=== PATIENT | female | born 2000 | race African-American/Black ===

== ENCOUNTER 2025-01-22 09:45 | Observation (INO) | payer MEDICAID, SELFPAY ==
--- NOTE | 2025-01-22 10:13 | PC.NURSE ---
Dr. Shelton notified of pt. arrival for nausea/vomiting. Orders received for 1L LR bolus and one time dose of 4 mg IV zofran. Will re-evaluate after fluids and antiemetic if pt. needs further IVF or medication.
--- NOTE | 2025-01-22 10:20 | OBADM ---
This patient, Zulema Mckinney, admitted to the OB room 115 for observation. Patient/family oriented to hospital policies and general routines including ID bracelet, bed and alarms, visiting hours, pain management, procedures, bathroom and other care routines, personal items, smoking policy, room service/diet, and visiting hours. Patient/Family are encouraged to report perceived risks to care and to ask questions if they do not understand what they are told or what they should do.
[2025-01-22] MEDS: LACTATED RINGERS 1,000 ML 999 ML IV CONT ×2 (10:49→13:46)
[2025-01-22 10:55] VITALS: BMI 17.2
[2025-01-22] MEDS: ONDANSETRON INJ 4 MG/2 ML VIAL IV PUSH (11:05)
--- OUTSIDE RECORDS SUMMARY | 2025-01-22 11:16 | XMS_ITS | Clinical Summary ---
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 Role Phone Unavailable Primary Care Provider Unavailabl e Allergies No known active allergies Medications No known medications Active Problems No known active problems Family History Medical History Relation Name Comments No Known Problems Brother No Known Problems Father Cancer Maternal Grandfather No Known Problems Maternal Grandmother No Known Problems Mother Unknown Paternal Grandfather Unknown Paternal Grandmother No Known Problems Sister Relation Name Status Comments Brother Alive Father Alive Maternal Grandfather Alive Maternal Grandmother Alive Mother Alive Paternal Grandfather Paternal Grandmother Sister Alive Social History Tobacco Use Types Packs/Day Years Used Date Smoking Tobacco: Never Smokeless Tobacco: Never Alcohol Use Standard Drinks/Week Comments Never 0 (1 standard drink = 0.6 oz pur e alcohol) Comments No Sex and Gender Information Value Date Recorded Sex Assigned at Not on file Legal Sex Female 2:35 PM CDT Gender Identity Not on file Sexual Orientation Not on file Last Filed Vital Signs Vital Sign Reading Time Taken Comments Blood Pressure 100/62 05/26/2020 3:23 PM CDT Pulse 91 05/26/2020 3:23 PM CDT Temperature 36.9 C (98.5 F) 05/26/2020 3:23 PM CDT Respiratory Rate 16 05/26/2020 3:23 PM CDT Oxygen Saturation 98% 05/26/2020 3:23 PM CDT Inhaled Oxygen Concentration - - Weight 59 kg (130 lb) 05/26/2020 3:23 PM CDT Height 165.1 cm (5' 5 ) 05/26/2020 3:23 PM CDT Body Mass Index 21.63 05/26/2020 3:23 PM CDT Plan of Treatment Health Maintenance Due Date Last Done Comments HPV VACCINES (1 - 3-dose series) 2013 DTAP/TDAP/TD VACCINES (1 - Tdap) 2017 HEPATITIS B VACCINES (1 of 3 - 19+ 3-dose series) 10/2017 CERVICAL CANCER SCREENING 12/02/2019 HPV/Cotest (21-29) 12/02/2019 PAP SMEAR 12/02/2019 INFLUENZA VACCINE (#1) 2024
--- OUTSIDE RECORDS SUMMARY | 2025-01-22 11:16 | XMS_ITS | Clinical Summary ---
Author Organization 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 Gender Identity Not on file Sexual Orientation Not on file Plan of Treatment Health Maintenance Due Date Last Done Comments Hepatitis C Virus (HCV) Screening 1998 Pap Smear 12/02/2019 Influenza Immunization (#1) 2024 09/20/2012 SARS-COV-2 Immunization ( season) 2024 Respiratory Syncytial Virus (RSV) Immunization (Adult) (1 - 1-dose 75+ series) 2073 Hepatitis B Immunization Completed 999, 02/19/1999, 1998 DTaP/Tdap/Td Immunization Discontinued 2011, 04/11/2003, 03/31/2000, Additional history exists TdaP Immunization Completed 09/20/2012 Human Papillomavirus (HPV) Immunization Completed 06/03/2015, 06/05/2013, 09/20/2012 Meningococcal Immunization (ACWY) Completed 06/03/2015, 09/20/2012 Pneumococcal Immunization Combined Aged Out No longer eligible based on patient's age to complete this topic Rotavirus Immunization Aged Out No lo nger eligible based on patient's age to complete this topic
--- OUTSIDE RECORDS SUMMARY | 2025-01-22 11:16 | XMS_ITS | Clinical Summary ---
Author Organization [facility] Address [address] [place] [address] Care Team Providers Care Dictaphone Mechanic Name Role Phone No, Physician Primary Care Provider [phone] Allergies No known active allergies Medications ferrous sulfate 325 mg (65 mg of elemental iron) tabletIndications: Iron Deficiency Anemia Take 325mg ferrous sulfate every other day. Take with 250mg ascorbic acid tablet of half a glass of orange juice to enhance absorption. Take two hours before, or four hours after, ingestion of antacids/heartb urn. Take separately from calcium-contain ing foods and beverages (milk), calcium supplements, cereals, dietary fiber, tea, coffee, and eggs. 45 tablet 3 08/11/20 23 Active ascorbic acid (VITAMIN C) 250 mg tablet Take 1 tablet (250 mg total) by mouth every other day With iron 45 tablet 3 08/11/20 23 Active triamcinolone (KENALOG) 0.1 % ointmentIndication s:Eczema, unspecified type Apply topically 2 (two) times a day For up to two weeks as needed. Repeat as needed. Schedule a follow up appointment if symptoms not improving or worsen. 15 g 09/27/20 23 Active doxylamine-pyridox ine, vit B6, (DICLEGIS) 10-10 mg tablet Take 1 tablet by mouth nightly as needed for nausea 20 tablet 01/18/20 25 Active ondansetron ODT (ZOFRAN-ODT) 4 mg disintegrating tablet Take 1 tablet (4 mg total) by mouth every 8 (eight) hours as needed for nausea or vomiting 20 tablet 01/18/20 25 Active Active Problems Problem Noted Date Diagnosed Date Annual physical exam 02/09/2022 Assessment & Plan (05/10/2023 3:30 PM CDT): Reviewed PMH & FH phq reviewed Reviewed medications and supplements HCM: orders placed as needed Irregular menses 02/09/2022 Screening for malignant neoplasm of cervix 02/09 Comments Yes Encounters Date Type Department Care Team Description 01/17/2025 9:09 AM CDT - 01/17/2025 10:[address] [facility] Emergency Department [address] [place] [address] [id number] Nausea/vomiting in (Primary Dx) Discharge Disposition: Discharge to home or self care from Last 3 Months Immunizations Immunization Administration Dates Next Due DTaP 04/11/2003, 0,06/25/1999,05/06,02/19/1999 HPV, Quadrivalent 06/05/2013,09/20/2012 HPV9 06/03/2015 Hep A, Ped Unspecified 01/31/2001 Hep A, Pediatric 04/04/2007 Hep B / HiB 06/25/1999 Hep B, Adolescent or Pediatric 02/19/1999,1998 HiB 03/31/2000,05/06/1999,02/19/1999 IPV 04/11/2003, 0,05/06/1999,02/19 Influenza, Quadrivalent, Spl it, Preservative Free, Intramuscular 07/05/2023 Influenza, Trivalent, Preser vative Free, Intramuscular 09/20/2012 Influenza, Unspecified 07/12/2022 MMR 04/11/2003,12/18/1999 Meningococcal MCV4P (Menactra) 06/03/2015,2011 PPD TEST 08/08/2023 Tdap 09/20/2012 Varicella 04/04/2007,12/18/1999 Family History Medical History Relation Name Comments No Known Problems Father No Known Problems Mother Breast cancer Neg Hx Ovarian cancer Neg Hx Relation Name Status Comments Father Alive Mother Alive Social History Tobacco Use Types Packs/Day Years Used Date Smoking Tobacco: Never Smokeless Tobacco: Never Tobacco Cessation:Counseling Given: Not Answered Alcohol Use Standard Drinks/Week Comments Yes 0 (1 standard drink = 0.6 oz pur e alcohol) socially AUDIT-C Answer Date Recorded Q1: How often do you have a drink containing alc ohol? 2-4 times a month 05/10/2023 Average Number of Drinks Not on file 023 Frequency of Binge Drinking Not on file 05/2023 PHQ-2 Answer Date Recorded PHQ-2 Total Score (If total score is 3 or more points, staff should administer the PHQ-9) 0 05/10/2023 Personal Safety Answer Date Recorded Have you ever been in or are you currently in a harmful physical or emotional relationship or is someone making you feel afraid or unsafe? Denies 01/17/2025 Comments Yes Sex and Gender Information Value Date Recorded Sex Assigned at Not on file Legal Sex Female 2:55 PM IT RISK ADVISOR Gender Identity Not on file Sexual Orientation Not on file Obstetrics History Para Term AB IAB SAB Ectopic Multiple Livin g Live Births 1 0 0 0 0 0 0 0 0 0 0 Date Outcome GA Total Labor Labor/2nd/3rd Weight Sex Type Anes PTL Katina A1 A5 Name Clin Current Last Filed Vital Signs Vital Sign Reading Time Taken Comments Blood Pressure 126/74 01/17/2025 10:30 AM CDT Pulse 84 01/17/2025 10:30 AM CDT Temperature 36.9 C (98.5 F) 01/17/2025 8:16 AM CDT Respiratory Rate 18 01/17/2025 10:3 0 AM CDT Oxygen Saturation 100% 01/17/2025 10: 30 AM CDT Inhaled Oxygen Concentration - - Weight 47.5 kg (104 lb 11.5 oz) 01/17/2025 8:16 AM CDT Height 165.1 cm (5' 5 ) 05/10/2023 3:11 PM CDT Body Mass Index 17.43 05/10/2023 3:11 PM CDT Plan of Treatment Health Maintenance Due Date Last Done Comments DTaP/Tdap/Td Vaccine (7 - Td or Tdap) 09/20/2022 09/20/2012, 04/11/2003, 03/31/2000, Additional history exists Cervical Cancer Screening 02/09/2023 02/09/2022 Depression Screening 05/10/2024 05/10/2023 Regular Well Visit/Exam 18-64 05/10/2024 05/10/2023, 02/09/2022 Covid-19 Vaccine ( season) 2024 07/01/2021, 06/07/2021 Influenza Vaccine (Season Ended) 2025 07/05/2023, 07/12/2022, 09/20/2012 Hepatitis B Screening Completed 06/25/1999 , 02/19/1999, 1998 Varicella Vaccines Completed 04/04/2007, 12/18/1999 HPV Vaccines Completed 06/03/2015, 12/2012, 09/20/2012 Hepatitis C Screening Completed 07/05/2023 Pneumococcal vaccine <65 Aged Out No longer eligible based on patient's age to complete this topic Procedures Procedure Name Priority Date/Time Associated Diagnosis Comments EGFR STAT 01/17/2025 8:24 AM CDT URINALYSIS, MICROSCOPIC ONLY STAT 01/17/2025 8:24 AM CDT DIFFERENTIAL AUTO STAT 01/17/2025 8:2 4 AM CDT HCG, BLOOD, QUANTITATIVE STAT 01/17/2025 8:24 AM CDT LIPASE STAT 01/17/2025 8:24 AM CDT COMPREHENSIVE METABOLIC PANEL STAT 01/17/2025 8:24 AM CDT CBC WITH AUTO DIFFERENTIAL STAT 01/17/2025 8:24 AM CDT URINALYSIS AND REFLEX TO MICROSCOPIC AND CULTURE STAT 01/17/2025 8:24 AM CDT HEPATITIS PANEL, ACUTE Routine 3:37 PM CDT Routine screening for STI (sexually transmitted infection) PAP WITH REFLEX TO HIGH RISK HPV Routine 02/09/2022 11:05 AM CDT Annual physical exam Screening for malignant neoplasm of cervix from Last 3 Months or Most Recently Relevant to Health Maintenance Results * eGFR (01/17/2025 8:24 AM CDT) eGFR >90 >=60 mL/min/1. 73 m2 Comment: Interpretive Data Reference Interval Normal >/= 90 mL/min/1.73m2 Mildly decreased* 60 - 89 mL/min/1.73m2 Mildly to moderately decreased 45 - 59 mL/min/1.73m2 Moderately to severely decreased 30 - 44 mL/min/1.73m2 Severely decreased 15 - 29 mL/min/1.73m2 Kidney Failure < 15 mL/min/1.73m2 *Relative to young adult level Estimated glomerular filtration rate is determined by the 2020 CKD-EPI equation recommended by the National Kidney Foundation (A Unifying Approach to GFR Estimation: Recommendations of the NKF-ASK Task Force on Reassessing the Inclusion of Race in Diagnosing Kidney Disease, JASN 2020). The CKD-EPI equation should not be used for patients with unstable renal function and has not been validated in children and those over 70. Current interpretive data was last reviewed 2021. Testing performed by: [address] [address] Blood 01/17/2025 8:24 AM CDT 01/17/2025 8:34 AM CDT us Sterling Henry MD LAB BLOOD ORDERABLES Final Resul t [facility] [address] [facility] Department [place] [address] * Differential, auto (01/17/2025 8:24 AM CDT) Pathologist [facility] Emergency Department Neutrophil abs 3.41 1.50 - 6.50 K/cumm Comment:Testing performed by : [address] [address] Imm gran abs 0.01 0.00 - 0.10 K/cumm [facility] CALVIN Comment:Testing performed by : [address] [address] Lymphocyte abs 1.65 0.80 - 3.30 K/cumm DARWIN Comment:Testing performed by : [address], [place]., [address] Monocyte abs 0.65 0.20 - 0.80 K/cumm [facility] Comment:Testing performed by : [address], [place]., [address] Eosinophil abs 0.04 0.00 - 0.50 K/cumm [facility] Comment:Testing performed by : [address], [place]., [address] Basophil abs 0.09 0.00 - 0.10 K/cumm [facility] Comment:Testing performed by : [address] [address] Neutrophil pct 58.3 % [facility] Comment: Interpretive Data Percent cell count reference ranges are not reported, since discordance with absolute values may lead to misinterpretation of CBC data. Current Interpretive Data was last revised on 2018. Testing performed by: [address] [address] Imm gran pct 0.2 % [facility] Comment: Interpretive Data Percent cell count reference ranges are not reported, since discordance with absolute values may lead to misinterpretation of CBC data. Current Interpretive Data was last revised on 2018. Testing performed by: [address] [address] Lymphocyte pct 28.2 % [facility] Comment: Interpretive Data Percent cell count reference ranges are not reported, since discordance with absolute values may lead to misinterpretation of CBC data. Current Interpretive Data was last revised on 2018. Testing performed by: [address] [address] Monocyte pct 11.1 % [facility] Comment: Interpretive Data Percent cell count reference ranges are not reported, since discordance with absolute values may lead to misinterpretation of CBC data. Current Interpretive Data was last revised on 2018. Testing performed by: [address] [address] Eosinophil pct 0.7 % [facility] Comment: Interpretive Data Percent cell count reference ranges are not reported, since discordance with absolute values may lead to misinterpretation of CBC data. Current Interpretive Data was last revised on 2018. Testing performed by: [address] [address] Basophil pct 1.5 % D[facility]WIN CALVIN Comment: Interpretive Data Percent cell count reference ranges are not reported, since discordance with absolute values may lead to misinterpretation of CBC data. Current Interpretive Data was last revised on 2018. Testing performed by: [address] [address] Blood 01/17/2025 8:24 AM CDT 01/17/2025 8:34 AM CDT us Sterling Henry MD LAB BLOOD ORDERABLES Final Resul t [facility] [address] [facility] Department [place] [address] * (ABNORMAL) Urinalysis reflex to microscopic and culture Urine (01/17/2025 8:24 AM CDT) Color, ur Yellow Yellow Comment:Testing performed by : [address] [address] Clarity, ur Cloudy(A) Clear DARWIN Comment:Testing performed by : [address] [address] Specific gravity, ur 1.029 1.003 - 1.030 DARWIN Comment:Testing performed by : [address] [address] pH, urine 6.5 DARWIN Comment: Interpretive Data U rine pH is affected by diet, medications, systemic acid-base disturbances, and renal tubular function. pH may affect urinary stone formation. For example, urine pH below 6.0 may help reduce the tendency for calcium phosphate stones and pH greater than 6.0 may reduce the tendency for uric acid stone formation. Source: [employer]How[employer] Current Interpretive Data was last revised on 2017 Testing performed by: [address] [address] Protein, ur ql 1+(A) Negative DARWIN CALVIN Comment:Testing performed by : [address], [place]., [address] Glucose, ur ql Negative Negative DARWIN Comment:Testing performed by : [address], [place]., [address] Ketones, ur 3+(A) Negative DARWIN CALVIN Comment:Testing performed by : [address], [place]., [address] Bilirubin, ur Negative Negative DARWIN CALVIN Comment:Testing performed by : [address], [place]., [address] Blood, ur Negative Negative DARWIN Comment:Testing performed by : [address], [place]., [address] Urobilinogen, ur 2.0(A) <2.0 mg/dL [facility]WIN CALVIN Comment:Testing performed by : [address], [place]., [address] Nitrite, ur Negative Negative DARWIN Comment:Testing performed by : [address], [place]., [address] Leukocyte esterase, ur Negative Negative [facility]ARWIN Comment:Testing performed by : [address], [place]., [address] UA reflex comment Reflex to microscopic UA will be performed. DARWIN Comment:Testing performed by : [address], [place]., [address] Urine 01/17/2025 8:24 AM CDT 01/17/2025 8:34 AM CDT us Sterling Henry MD LAB MICROBIOLOGY - GENERAL ORDER HIRAL Final Result [facility] [address] [facility] Department [place] [address] * (ABNORMAL) CBC with auto differential (01/17/2025 8:24 AM CDT) WBC 5.85 3.80 - 9.90 K/cumm Comment:Testing performed by : [address], [place]., [address] Hgb 12.4 11.9 - 15.5 g/dL [facility]WIN CALVIN Comment:Testing performed by : [address] [address] Hct 36.4 35.6 - 45.5 % [facility]WIN Comment:Testing performed by : [address] [address] Plt 348 150 - 400 K/cumm DARWIN Comment:Testing performed by : [address] [address] MPV 9.8 9.1 - 12.3 fL DARWIN Comment:Testing performed by : [address] [address] RBC 3.97 3.90 - 5.20 M/cumm DARWIN Comment:Testing performed by : [address] [address] MCV 91.7 81.3 - 96.4 fL [facility]ARWIN Comment:Testing performed by : [address] [address] MCH 31.2 27.1 - 33.3 pg [facility]ARWIN Comment:Testing performed by : [address] [address] MCHC 34.1 32.3 - 35.7 g/dL [facility]WIN Comment:Testing performed by : [address] [address] RDW CV 14.6 11.1 - 14.9 % [facility]ARWIN Comment:Testing performed by : [address] [address] RDW SD 49.4(H) 35.7 - 48.1 fL [facility]ARWIN Comment:Testing performed by : [address] [address] NRBC abs 0.00 0.00 - 0.01 K/cumm DARWIN Comment:Testing performed by : [address] [address] Blood Venous blood specimen / Unknown 01/17/2025 8:24 AM CDT 01/17/2025 8:34 AM CDT us Sterling Henry MD LAB BLOOD ORDERABLES Final Resul t Performing Organization Address [facility] de Phone Number [facility] [place] [address] * (ABNORMAL) Urinalysis, microscopic only (01/17/2025 8:24 AM CDT) WBC, ur 0-5 0 - 5 /HPF Comment:Testing performed by : [address] [address] RBC, ur 3-5(A) 0 - 2 /HPF DARWIN Comment:Testing performed by : [address] [address] Epithelial cells, squamous, ur >50(A) 0 - 5 /HPF DARWIN Comment:Testing performed by : [address] [address] Mucous, ur Present(A) [facility]ARWIN Comment:Testing performed by : [address] [address] Culture Reflex Comment Reflex conditions for urine culture (WBC >10) not met. DARWIN Comment:Testing performed by : [address] [address] Urine 01/17/2025 8:24 AM CDT 01/17/2025 8:34 AM CDT Sterling Henry MD LAB URINE ORDERABLES Final Resul t Performing Organization Address [facility] Co de Phone Number [facility] [place] [address] * (ABNORMAL) hCG, blood, quantitative (01/17/2025 8:24 AM CDT) hCG, quant 59,449.0( H) 0.0 - 5.0 IUnits/L Comment: Interpretive Data Male: < 5 IU/L Non- premenopausal Female: <5 IU/L The Wenceslao hCG Beta Quant assay procedure was used. Results from different manufacturers or methods may not be comparable. Serial testing should be performed using the same method. Interpretive Data was last revised on 2023 Testing performed by: [address] [address] Blood 01/17/2025 8:24 AM CDT 01/17/2025 8:34 AM CDT Sterling Henry MD LAB BLOOD ORDERABLES Final Resul t Performing Organization Address [facility] Co de Phone Number [address] [place] [address] * Lipase (01/17/2025 8:24 AM CDT) Lipase 15 10 - 99 Units/L Comment:Testing performed by : [address] [address] Blood Venous blood specimen / Unknown 01/17/2025 8:24 AM CDT 01/17/2025 8:34 AM CDT us Sterling Henry MD LAB BLOOD ORDERABLES Final Resul t Performing Organization Address [facility] de Phone Number [address] [address] * (ABNORMAL) Comprehensive metabolic panel (01/17/2025 8:24 AM CDT) Sodium 136 135 - 145 mmol/L Comment:Testing performed by : [address] [address] Potassium, pl 3.5 3.3 - 4.9 mmol/L DARWIN Comment:Testing performed by : [address] [address] Chloride 100 97 - 110 mmol/L [facility]WIN Comment:Testing performed by : [address] [address] CO2 24 22 - 32 mmol/L [facility]WIN Comment:Testing performed by : [address] [address] Anion gap 12 2 - 15 mmol/L [facility]WIN Comment:Testing performed by : [address] [address] BUN 10 6 - 25 mg/dL DARWIN Comment:Testing performed by : [address] [address] Creatinine 0.62 0.60 - 1.10 mg/dL [facility]WIN Comment:Testing performed by : [address] [address] Glucose 83 70 - 199 mg/dL DARWIN Comment: Interpretive Data Fasting glucose >/= 126 mg/dl is diagnostic for diabetes. Fasting is defined as no caloric intake for at least 8 hours. Fasting glucose between 100 mg/dl to 125 mg/dl is diagnostic of prediabetes. In a patient with classic symptoms of hyperglycemia or hyperglycemic crisis, a random glucose >/= 200 mg/dl is diagnostic for diabetes. In the absence of unequivocal hyperglycemia, results should be confirmed by repeat testing. The classification and Diagnosis of Diabetes Diabetes Care 2021; 46: S19-S40. Current interpretive data was last revised 2022. Testing performed by: [address] [address] Calcium 10.3 8.5 - 10.3 mg/dL [facility] Comment:Testing performed by : [address] [address] Bilirubin, total 1.3(H) 0.1 - 1.2 mg/dL [facility]WIN Comment:Testing performed by : [address] [address] Protein, pl 7.8 6.5 - 8.5 g/dL [facility] Comment:Testing performed by : [address] [address] Albumin 4.7 3.5 - 5.0 g/dL [facility] Comment:Testing performed by : [address] [address] Alk phos 46 40 - 130 Units/L DARWIN Comment:Testing performed by : [address] [address] ALT 12 7 - 45 Units/L DARWIN Comment:Testing performed by : [address] [address] AST 19 10 - 45 Units/L DARWIN Comment:Testing performed by : [facility], [address] [place] [address]., [address] Blood 01/17/2025 8:24 AM CDT 01/17/2025 8:34 AM CDT Sterling Henry MD LAB BLOOD ORDERABLES Final Resul t Performing Organization Address City/[facility]/ZIP Co de Phone Number [facility] [address] [facility] [place] [address] * Hepatitis panel, acute Blood (07/05/2023 3:37 PM CDT) Hep A IgM Nonreactive Nonreactive Comment: Interpretive Data: If Hep A IgM Ab is reported as Equivocal, a new sample should be drawn in two weeks for testing. Current interpretive data was last revised on 19. Hep B core IgM Nonreactive Nonreactive DARWIN Comment: Interpretive Data If HepB Core IgM Ab is reported as Equivocal, a new sample should be drawn in two weeks for testing. Current interpretive data was last revised on 19. Hep C Ab Nonreactive Nonreactive [facility] Comment: Interpretive Data Nonreactive: Antibodies to HCV not detected. Does NOT exclude the possibility of recent exposure to HCV. Equivocal: Equivocal for HCV antibodies. Supplemental molecular testing will be automatically performed to determine infection status in accordance with current CDC screening recommendations. Reactive: Positive for HCV antibodies. This may represent current or past HCV infection. Supplemental molecular testing will be automatically performed to determine current infection status in accordance with current CDC screening recommendations. Interpretive data was last revised on 2019. HepBsAg Nonreactive Nonreactive [facility] Blood 07/05/2023 3:37 PM CDT 07/05/2023 6:33 PM CDT Pinky Rossi MD LAB MICROBIOLOGY - GENERAL ORDERABLES Final Result [facility] [address] [facility] [place] [address] * Pap with reflex to High Risk HPV (02/09/2022 11:05 AM CDT) Thin prep (Pap test) 02/09/2022 11:05 AM CDT 02/10/2022 11:05 AM CDT Narrative PATHOLOGY [facility] - 02/12/2022 11:00 AM CDT [facility] Department of Pathology [address] [place] [address] Final Report Note to Patients: This report may contain a detailed description of human tissue sent by a health care provider to the laboratory for pathologic evaluation. The content of this report is essential for diagnosis and may provide important critical findings. This information may be unfamiliar to patients to review without a medical professional present. It is advised that the patient review this report in the presence of a health care provider who can answer questions and explain the details. Patient Name: ELDA MCKINNEY Address: [address] [place] [address] Gender: F : 2000 (Age: 21) Service: Laboratory Location: [facility] #: [id number] Patient Type: [facility] SPECIMEN Taken: 02/09/2022 Received: 02/10/2022 Accessioned:: 02/11/2022 Reported: 02/12/2022 Physician(s): Robyn Laws PA-C [facility] Diagnosis: Source of Specimen: Imaged Thinprep Pap Test w/ Reflex HPV - Injection Molding Engineer Cytologic Material Specimen Adequacy: - Satisfactory for evaluation; endocervical/transformation zone component present General Category: - Negative for intraepithelial lesion or malignancy DALIA Momin(ASCP) Report Electronically Reviewed and Signed Out By DALIA Momin(ASCP) 02/12/2022 11:00:56 Specimen(s) Received: A: Imaged Thinprep Pap Test w/ Reflex HPV - Injection Molding Engineer Cytologic Material Clinical History: Last Menstrual Period: 01/28/2022 The Pap test is a screening test used to aid in the detection of cervical cancer and its precursors. It should not be the sole means by which malignant and premalignant lesions are diagnosed. Both false negative and false positive results may occur. It also has poor sensitivity for the detection of endometrial lesions and should not be used to evaluate suspected endometrial abnormalities. For these reasons it is most important to obtain Pap tests at regular intervals. The performance characteristics of some immunohistochemical stains, fluorescence in-situ hybridization tests and immunophenotyping by flow cytometry cited in this report (if any) were determined by the Surgical Pathology Department at [facility] as part of an ongoing it quality assurance analyst program and in compliance with federally mandated regulations drawn from the Clinical Laboratory Improvement Act of 1988 (CLIA '88). Some of these tests rely on the use of analyte specific reagents and are subject to specific labeling requirements by the US Food and Drug Administration. Such diagnostic tests may only be performed in a facility that is certified by the Department of Health and Human Services as a high complexity laboratory under CLIA '88. The FDA has determined that such clearance or approval is not necessary. This test is used for clinical purposes. It should not be regarded as investigational or for research. Nevertheless, federal rules concerning the medical use of analyte specific reagents require that the following disclaimer be attached to the report: This test was developed and its performance characteristics determined by the Surgical Pathology Department [facility]. It has not been cleared or approved by the U. S. Food and Drug Administration. Robyn AN LAB CYTOLOGY ORDERABLES [facility] Result PATHOLOGY [facility] from Last 3 Months or Most Recently Relevant to Health Maintenance Insurance [facility] Care Teams Dictaphone Mechanic Relationship Specialty Start Date End Date No, Physician PCP - General 01/17/25
--- OUTSIDE RECORDS SUMMARY | 2025-01-22 11:16 | XMS_ITS | Referral Summary ---
Author Organization [facility] ospital Address [address] [place] [address] Care Team Providers Care Operational Review Sergeant Name Role Phone No, Physician Primary Care Provider [phone] Encounters Date Type Department Care Team Description 01/17/2025 9:09 AM CDT - 01/17/2025 10:36 AM CDT Emergency [facility] Emergency Department [address] [place] [address] Nausea/vomiting in (Primary Dx) Discharge Disposition: Discharge to home or self care from Last 3 Months Allergies No known active allergies Medications ferrous [...] malignant neoplasm of cervix 02/09 Comments Yes Immunizations Immunization Administration Dates Next Due DTaP [...] PPD TEST 08/08/2023 Tdap 09/20/2012 Varicella 04/04/2007,12/18/1999 Social History Tobacco Use Types Packs/Day Years [...] on file Legal Sex Female 2:55 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 Testing performed by: [facility], [address] [place] [address], [place]., [address] Blood 01/17/2025 8:24 AM CDT 01/17/2025 8:34 AM CDT us Sterling Henry MD LAB BLOOD ORDERABLES Final Resul t DARWIN [address] [facility] Department [place] [address] * Differential, auto (01/17/2025 8:24 AM CDT) Neutrophil abs 3.41 1.50 - 6.50 K/cumm Comment:Testing performed by : [address] [address] Imm gran abs 0.01 0.00 - 0.10 K/cumm DARWIN Comment:Testing performed by : [address] [address] Lymphocyte abs 1.65 0.80 - 3.30 K/cumm DARWIN Comment:Testing performed by : [address] [address] Monocyte abs 0.65 0.20 - 0.80 K/cumm [facility] Comment:Testing performed by : [address] [address] Eosinophil abs 0.04 0.00 - 0.50 K/cumm [facility] Comment:Testing performed by : [address] [address] Basophil abs 0.09 0.00 - 0.10 K/cumm [facility] Comment:Testing performed by : [address] [address] Neutrophil pct 58.3 % [facility] Comment: Interpretive Data Percent cell count reference ranges are not reported, since discordance with absolute values may lead to misinterpretation of CBC data. Current Interpretive Data was last revised on 2018. Testing performed by: [address] [address] Imm gran pct 0.2 % DARWIN Comment: Interpretive Data Percent cell count reference ranges are not reported, since discordance with absolute values may lead to misinterpretation of CBC data. Current Interpretive Data was last revised on 2018. Testing performed by: [address] [address] Lymphocyte pct 28.2 % [facility] Comment: Interpretive Data Percent cell count reference ranges are not reported, since discordance with absolute values may lead to misinterpretation of CBC data. Current Interpretive Data was last revised on 2018. Testing performed by: [address] [address] Monocyte pct 11.1 % DARWIN Comment: Interpretive Data Percent cell count reference ranges are not reported, since discordance with absolute values may lead to misinterpretation of CBC data. Current Interpretive Data was last revised on 2018. Testing performed by: [address] [address] Eosinophil pct 0.7 % DARWIN Comment: Interpretive Data Percent cell count reference ranges are not reported, since discordance with absolute values may lead to misinterpretation of CBC data. Current Interpretive Data was last revised on 2018. Testing performed by: [address] [address] Basophil pct 1.5 % DARWIN Comment: Interpretive Data Percent cell count reference ranges are not reported, since discordance with absolute values may lead to misinterpretation of CBC data. Current Interpretive Data was last revised on 2018. Testing performed by: [address] [address] Blood 01/17/2025 8:24 AM CDT 01/17/2025 8:34 AM CDT us Sterling Henry MD LAB BLOOD ORDERABLES Final Resul t [facility] [address] [facility] Department of Laboratories [place], [place] [id number] * (ABNORMAL) Urinalysis reflex to microscopic and culture Urine (01/17/2025 8:24 AM CDT) Color, ur Yellow Yellow Comment:Testing performed by : [address] [address] Clarity, ur Cloudy(A) Clear DARWIN Comment:Testing performed by : [address] [address] Specific gravity, ur 1.029 1.003 - 1.030 D[facility]WIN Comment:Testing performed by : [facility], [address] [place] [address], [place]., [address] pH, urine 6.5 DARWIN Comment: Interpretive Data U rine pH is affected by diet, medications, systemic acid-base disturbances, and renal tubular function. pH may affect urinary stone formation. For example, urine pH below 6.0 may help reduce the tendency for calcium phosphate stones and pH greater than 6.0 may reduce the tendency for uric acid stone formation. Source: [facility] Current Interpretive Data was last revised on 2017 Testing performed by: [facility], [address] [place] [address], [place]., [address] Protein, ur ql 1+(A) Negative DARWIN Comment:Testing performed by : [address], [place]., [address] Glucose, ur ql Negative Negative DARWIN Comment:Testing performed by : [address], [place]., [address] Ketones, ur 3+(A) Negative DARWIN Comment:Testing performed by : [facility], [address] [place] [address], [place]., [address] Bilirubin, ur Negative Negative DARWIN Comment:Testing performed by : [address], [place]., [address] Blood, ur Negative Negative D[facility]WIN Comment:Testing performed by : [address], [place]., [address] Urobilinogen, ur 2.0(A) <2.0 mg/dL [facility]WIN Comment:Testing performed by : [address] [address] Nitrite, ur Negative Negative [facility]WIN Comment:Testing performed by : [address], [place]., [address] Leukocyte esterase, ur Negative Negative D[facility]WIN Comment:Testing performed by : [address] [address] UA reflex comment Reflex to microscopic UA will be performed. DARWIN Comment:Testing performed by : [address], [place]., [address] Urine 01/17/2025 8:24 AM CDT 01/17/2025 8:34 AM CDT us Sterling Henry MD LAB MICROBIOLOGY - GENERAL ORDER HIRAL Final Result D[facility] [address] [facility] Department [place] [address] * (ABNORMAL) CBC with auto differential (01/17/2025 8:24 AM CDT) WBC 5.85 3.80 - 9.90 K/cumm Comment:Testing performed by : [address] [address] Hgb 12.4 11.9 - 15.5 g/dL D[facility]WIN Comment:Testing performed by : [address] [address] Hct 36.4 35.6 - 45.5 % [facility]WIN Comment:Testing performed by : [address] [address] Plt 348 150 - 400 K/cumm DARWIN Comment:Testing performed by : [address] [address] MPV 9.8 9.1 - 12.3 fL [facility]WIN Comment:Testing performed by : [address] [address] RBC 3.97 3.90 - 5.20 M/cumm D[facility]WIN Comment:Testing performed by : [address] [address] MCV 91.7 81.3 - 96.4 fL [facility] Comment:Testing performed by : [address] [address] MCH 31.2 27.1 - 33.3 pg [facility]WIN Comment:Testing performed by : [address] [address] MCHC 34.1 32.3 - 35.7 g/dL [facility]WIN Comment:Testing performed by : [address] [address] RDW CV 14.6 11.1 - 14.9 % DARWIN Comment:Testing performed by : [address] [address] RDW SD 49.4(H) 35.7 - 48.1 fL [facility]WIN Comment:Testing performed by : [address] [address] NRBC abs 0.00 0.00 - 0.01 K/cumm DARWIN Comment:Testing performed by : [address] [address] Blood Venous blood specimen / Unknown 01/17/2025 8:24 AM CDT 01/17/2025 8:34 AM CDT us Sterling Henry MD LAB BLOOD ORDERABLES Final Resul t [facility] [address] [facility] Department [place] [address] * (ABNORMAL) Urinalysis, microscopic only (01/17/2025 8:24 AM CDT) WBC, ur 0-5 0 - 5 /HPF Comment:Testing performed by : [address] [address] RBC, ur 3-5(A) 0 - 2 /HPF DARWIN Comment:Testing performed by : [address] [address] Epithelial cells, squamous, ur >50(A) 0 - 5 /HPF D[facility]WIN Comment:Testing performed by : [address] [address] Mucous, ur Present(A) DARWIN Comment:Testing performed by : [address] [address] Culture Reflex Comment Reflex conditions for urine culture (WBC >10) not met. DARWIN Comment:Testing performed by : [address] [address] Urine 01/17/2025 8:24 AM CDT 01/17/2025 8:34 AM CDT us Sterling Henry MD LAB URINE ORDERABLES Final Resul t MELODY[address] [place] [address] * (ABNORMAL) hCG, blood, quantitative (01/17/2025 8:24 AM CDT) Pathologist [facility] hCG, quant 59,449.0( H) 0.0 - 5.0 IUnits/L Comment: Interpretive Data Male: < 5 IU/L Non- premenopausal Female: <5 IU/L The Wenceslao hCG Beta Quant assay procedure was used. Results from different manufacturers or methods may not be comparable. Serial testing should be performed using the same method. Interpretive Data was last revised on 2023 Testing performed by: [address] [address] Blood 01/17/2025 8:24 AM CDT 01/17/2025 8:34 AM CDT us Sterling Henry MD LAB BLOOD ORDERABLES Final Resul t Performing Organization Address [facility] Co de Phone Number [address] [address] * Lipase (01/17/2025 8:24 AM CDT) [facility] Lipase 15 10 - 99 Units/L Comment:Testing performed by : [address] [address] Blood Venous blood specimen / Unknown 01/17/2025 8:24 AM CDT 01/17/2025 8:34 AM CDT Sterling Henry MD LAB BLOOD ORDERABLES Final Resul t [address] [place] [address] * (ABNORMAL) Comprehensive metabolic panel (01/17/2025 8:24 AM CDT) [facility] Sodium 136 135 - 145 mmol/L Comment:Testing performed by : [facility], [address] [place] [address], [place]., [address] Potassium, pl 3.5 3.3 - 4.9 mmol/L DARWIN Comment:Testing performed by : [address], [place]., [address] Chloride 100 97 - 110 mmol/L DARWIN Comment:Testing performed by : [address], [place]., [address] CO2 24 22 - 32 mmol/L DARWIN Comment:Testing performed by : [address], [place]., [address] Anion gap 12 2 - 15 mmol/L DARWIN Comment:Testing performed by : [address], [place]., [address] BUN 10 6 - 25 mg/dL DARWIN Comment:Testing performed by : [address], [place]., [address] Creatinine 0.62 0.60 - 1.10 mg/dL DARWIN Comment:Testing performed by : [address], [place]., [address] Glucose 83 70 - 199 mg/dL [facility] Comment: Interpretive Data Fasting glucose >/= 126 [...] classification and Diagnosis of Diabetes Diabetes Care 202; 46: S19-S40. Current interpretive data was last revised 2022. Testing performed by: [address], [place]., [address] Calcium 10.3 8.5 - 10.3 mg/dL DARWIN Comment:Testing performed by : [address], [place]., [address] Bilirubin, total 1.3(H) 0.1 - 1.2 mg/dL DARWIN Comment:Testing performed by : [address], [place]., [address] Protein, pl 7.8 6.5 - 8.5 g/dL DARWIN Comment:Testing performed by : [facility], [address] [place] [address]., [address] Albumin 4.7 3.5 - 5.0 g/dL DARWIN Comment:Testing performed by : [facility], [address] [place] [address], [place]., [address] Alk phos 46 40 - 130 Units/L D[facility]WIN Comment:Testing performed by : [address] [address] ALT 12 7 - 45 Units/L DARWIN Comment:Testing performed by : [address] [address] AST 19 10 - 45 Units/L [facility]WIN Comment:Testing performed by : [address] [address] Blood 01/17/2025 8:24 AM CDT 01/17/2025 8:34 AM CDT us Sterling Henry MD LAB BLOOD ORDERABLES Final Resul t [facility] [address] [facility] Department [place] [address] * Hepatitis panel, acute Blood (07/05/2023 3:37 [...] on 19. Hep C Ab Nonreactive Nonreactive [facility] Comment: Interpretive Data Nonreactive: Antibodies [...] last revised on 2019. HepBsAg Nonreactive Nonreactive DARWIN Blood 07/05/2023 3:3 7 PM CDT 07/05/2023 6:33 PM CDT Pinky Rossi MD LAB MICROBIOLOGY - GENERAL ORDERABLES Final Result DARWIN [address] [facility] Department of Laboratories [place], [place] [id number] * Pap with reflex to High Risk HPV (02/09/2022 11:05 AM CDT) Thin prep (Pap test) 02/09/2022 11:05 AM CDT 02/10/2022 11:05 AM CDT Narrative PATHOLOGY [facility] - 02/12/2022 11:00 AM CDT [facility] Department of Pathology [address] [place] [address] Final Report Note to Patients: This report [...] the details. Patient Name: ELDA MCKINNEY Address: [address] [place] [address] Gender: F : 2000 (Age: 21) Service: Laboratory Location: [facility] #: [id number] Patient Type: [facility] SPECIMEN Taken: 02/09/2022 Received: 02/10/2022 Accessioned:: 02/11/2022 Reported: 02/12/2022 Physician(s): Robyn Laws PA-C [facility] Diagnosis: Source of Specimen: Imaged Thinprep Pap Test w/ Reflex HPV - Accounts Receivable Bookkeeper Cytologic Material Specimen Adequacy: - Satisfactory for evaluation; endocervical/transformation zone component present General Category: - Negative for intraepithelial lesion or malignancy DALIA Momin(ASCP) Report Electronically Reviewed and Signed Out By DALIA Momin(ASCP) 02/12/2022 11:00:56 Specimen(s) Received: A: Imaged Thinprep Pap Test w/ Reflex HPV - Accounts Receivable Bookkeeper Cytologic Material Clinical History: Last Menstrual Period: [...] determined by the Surgical Pathology Department at [facility] as part of an ongoing food quality tester program and in compliance with federally mandated [...] characteristics determined by the Surgical Pathology Department [facility]. It has not been cleared or approved by the [place]. [place]. Food and Drug Administration. Robyn AN LAB CYTOLOGY ORDERABLES Fi nal Result PATHOLOGY [facility] from Last 3 Months or Most Recently Relevant to Health Maintenance Insurance [facility] [address] [place] [address] [facility] Care Teams Operational Review Sergeant Relationship Specialty Start Date End Date No, Physician PCP - General 01/17/25
[2025-01-22 12:57] LABS: Add Urine Microscopic? YES; Appearance Urine Cloudy (Clear); Bacteria Urine 1+ /hpf; Bilirubin Urine Negative (Negative); Blood Urine Negative (Negative); Color Urine Yellow (Yellow); Glucose Urine UA Negative (Negative); Ketones Urine 4+ mg/dL (Negative); Leukocyte Esterase Ur Negative LEU/UL (Negative); Nitrate Urine Negative (Negative); Non Pathogenic Casts 0-2; Protein Urine Trace mg/dL (Negative); RBC Urine 0-2 /hpf (0-2); Specific Grav Ur 1.026 (1.001-1.035); Squamous Epithelial Cell Urine Few /hpf (Few); WBC Urine 0-5 /hpf (0-3); pH Urine 7.5 (5.0-9.0)
--- NOTE | 2025-01-22 12:58 | PC.NURSE ---
Pt. expresses relief of nausea and feels better . Pt. going to order a regular diet tray and will assess if pt. able to tolerate. Pt. instructed to eat slowly and takes breaks while eating.
--- NOTE | 2025-01-22 13:39 | PC.NURSE ---
Orders received from Dr. Shelton for another LR bolus due to 4+ ketones in urine.
--- NOTE | 2025-01-22 14:28 | P.HP_ITS ---
H&P: HPI History of Present Illness Date/Time: 01/22/25 14:28 Chief Complaint: Nausea vomiting Narrative: This patient is a 24-year-old gravid female in 1st trimester with severe nausea and vomiting. She is admitted for observation. She has been given IV fluids and antiemetics. Her condition is improved. She denies any cramping or bleeding. She denies any chest pain or shortness of breath. She denies any nausea, vomiting, fever, chills. She will continue to be observed. When she is tolerating oral liquids and food we will discharge her. She will have short- term follow-up Review of Systems Review of Systems: All systems reviewed & are unremarkable except as noted in HPI and below Constitutional: Constitutional: Denies chills, Denies fatigue, Denies fever(s) and Denies weakness Eyes: Eyes: Denies blurry vision, Denies change in vision, Denies loss of peripheral vision, Denies loss of vision, Denies other visual disturbances and Denies eye pain ENT: Denies vertigo, Denies dizziness, Denies hearing loss, Denies mouth pain, Denies nasal obstruction, Denies neck mass and Denies neck pain Cardiovascular: Cardiovascular: Denies chest pain, Denies diaphoresis, Denies syncope, Denies leg edema and Denies dyspnea Respiratory: Respiratory: Denies chest congestion, Denies cough, Denies hemoptysis, Denies dyspnea and Denies wheezing Gastrointestinal: Gastrointestinal: Denies abdominal pain, Denies constipation, Denies diarrhea, Denies nausea and Denies vomiting Genitourinary: Genitourinary: Denies hematuria, Denies change in libido, Denies nocturia, Denies genital lesions, Denies flank pain and Denies urinary urgency Musculoskeletal: Musculoskeletal: Denies abnormal gait, Denies back pain, Denies myalgias, Denies arthralgias, Denies joint swelling, Denies muscle weakness and Denies neck pain Integumentary/Breasts: Skin/Breast: Denies swelling, Denies breast pain, Denies breast mass, Denies dry skin, Denies nipple discharge, Denies unusual bruising and Denies jaundice Neurologic: Denies Neuro-related abnormal movements, Denies Abnormal speech present, Denies abnormal gait, Denies behavioral changes, Denies confusion, Denies vertigo, Denies dizziness, Denies syncope, Denies loss of vision, Denies memory loss, Denies convulsions and Denies weakness Psychiatric: Psychiatric: Denies abnormal sleep pattern, Denies behavioral changes, Denies change in libido, Denies confusion, Denies depression, Denies anhedonia and Denies memory loss Endocrine: Endocrine: Reports no additional endocrine complaints, Denies change in libido and Denies fatigue Hematologic/Lymphatic: Hematologic/Lymphatic: Reports no additional hematologic/lymphatic complaints Allergic/Immunologic: Allergic/Immunologic: Reports no additional allergic/immunologic complaints and Denies wheezing PMFSH Social History Social History Do You Feel Safe in your Home?: Yes Lack of Transportation: No Lack of Food: Never True Current Housing: I Have Housing Concerned About Future Housing: No Difficulty Paying Gas/Electric Bills: No Difficulty Paying for Meds: No Currently Unemployed: No Education: High School Diploma/GED Difficulty w/ Childcare or Family Care: No Meds Home Medications and Allergies Home Medications ?Medication ?Instructions ?Recorded ?Confirmed ?Type ondansetron 4 mg disintegrating 4 mg PO Q8H PRN nausea and vomiting 01/22/25 01/22/25 History tablet pren vit comb.1-iron [id number] 90 1 tablet PO DAILY 01/22/25 01/22/25 History mg-1 mg-50 mg tablet Allergies Allergy/AdvReac Type Severity Reaction Status Date / Time No Known Allergies Allergy Verified 01/22/25 10:50 Exam Const: General: cooperative, healthy appearing, comfortable and no acute distress Orientation/consciousness: oriented to person, oriented to place and oriented to time HENMT: Head: normal to inspection Ears: external ears normal Face/Nose/Sinus: Normal external nose present and normal facial exam Face and sinus: normal facial exam Eyes: General: appearance normal, both eyes and all related structures Neck: Neck: normal visual inspection, trachea midline and supple Resp: Auscultation: clear to auscultation bilaterally, no crackles, no rales, no rhonchi and no wheezes Cardio: Rate: regular rate Rhythm: regular rhythm Heart sounds: no click, no murmurs and no rubs GI: GI Palp: No abdominal tenderness, No Soft to palpation, No Tenderness to palpation present (GI) and No Palpable mass present Auscultation: normal bowel sounds Skin: General skin exam: normal color and no rashes or lesions noted Neuro: General: oriented to person, oriented to place and oriented to time Extrem: General: normal to inspection, no joint enlargement, no clubbing, cyanosis or edema, no pedal edema and no calf tenderness Psych: Appearance: grossly normal Mental Status: mental status grossly normal Speech and movement: Normal speech and movement present H&P: Results Labs Labs: Urine 01/22/25 Range/Units 12:43 Urine Color Yellow (Yellow) Urine Appearance Cloudy H (Clear) Urine pH 7.5 (5.0-9.0) Ur Specific [place] 1.026 (1.001-1.035) Urine Protein Trace (Negative) mg/dL Urine Glucose (UA) Negative (Negative) mg/dL Assessment and Plan Assessment and plan (1) Hyperemesis affecting , antepartum: Code(s): O21.0 - Mild hyperemesis gravidarum Status: Acute Plan This patient is a 24-year-old gravid female in 1st trimester with severe nausea and vomiting. She is admitted for observation. She has been given IV fluids and antiemetics. Her condition is improved. She denies any cramping or bleeding. She denies any chest pain or shortness of breath. She denies any nausea, vomiting, fever, chills. She will continue to be observed. When she is tolerating oral liquids and food we will discharge her. She will have short- term follow-up
--- NOTE | 2025-01-22 14:35 | PC.NURSE ---
Spoke to Dr. Shelton in person. Pt. is ok to dc home to self care after 2nd fluid bolus is infused as long as nausea does not return.
--- NOTE | 2025-02-11 10:14 | PM.OBTRLD ---
OB - Triage/Final Diagnosis Visit Information Comments/Additional reasons for admission: I have assessed the risk for this patient, Zulema Mckinney, and determined that she would benefit from observation care. Evaluation Laboratory results: Laboratory Tests 01/22/25 12:43 Urine Color Yellow Urine Appearance Cloudy H Urine pH 7.5 Ur Specific [place] 1.026 Urine Protein Trace Urine Glucose (UA) Negative Urine Ketones 4+ H Ur Blood (Man) Negative Urine Nitrate Negative Urine Bilirubin Negative Urine Urobilinogen 1.0 Ur Leukocyte Esterase Negative Urine RBC 0-2 Urine WBC 0-5 Ur Squamous Epith Cells Few Urine Bacteria 1+ H Urine Casts 0-2 Final Diagnosis (1) Hyperemesis affecting , antepartum: Code(s): O21.0 - Mild hyperemesis gravidarum Status: Acute
== END 2025-01-22 15:13 | disposition home or self-care (01) ==
PROVIDERS: Admitting Provider Obstetrics & Gynecology; Visit Provider Obstetrics & Gynecology
DX: O21.0 Mild hyperemesis gravidarum (principal); Z3A.01 Less than 8 weeks gestation of pregnancy
CPT/HCPCS: 81001; 87086; 96361; 96374; G0378; G0379; J2405; J7120

== ENCOUNTER 2025-02-15 13:43 | Observation (INO) | payer MEDICAID, SELFPAY ==
--- OUTSIDE RECORDS SUMMARY | 2025-02-15 13:47 | XMS_ITS | Referral Summary ---
Author Organization [facility] ospital Address [address] [place] [address] Care Team Providers Care Document Processor Name Role Phone No, Physician Primary Care Provider [phone] Encounters Date Type Department Care Team Description 01/27/2025 1:51 PM CDT - 01/27/2025 5:41 PM T Emergency [facility] Emergency Department [address] [place] [id number] Hyperemesis gravidarum (Primary Dx); Use of cannabinoid edibles; Cannabis abuse Discharge Disposition: Discharge to home or self care 01/17/2025 9:09 AM CDT - 01/17/2025 10:36 AM T [facility] Emergency Department [address] [place] [id number] Nausea/vomiting in (Primary Dx) Discharge Disposition: Discharge [...] or vomiting 20 tablet 01/18/20 25 Active metoclopramide (REGLAN) 10 mg tablet Take 1 tablet (10 mg total) by mouth every 6 (six) hours 20 tablet 01/28/20 25 Active Active Problems Problem Noted Date [...] making you feel afraid or unsafe? 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 Gender Identity Not on file Sexual Orientation Not on file Last Filed Vital Signs Vital Sign Reading Time Taken Comments Blood Pressure 112/51 01/27/2025 5:20 PM CDT Pulse 74 01/27/2025 3:00 PM CDT Temperature 36.7 C (98 F) 01/27/2025 1:14 PM CDT Respiratory Rate 18 01/27/2025 3:00 PM CDT Oxygen Saturation 98% 01/27/2025 3:00 PM CDT Inhaled Oxygen Concentration - - Weight 46.5 kg (102 lb 8.2 oz) 01/27/2025 1:14 P M CDT Height 165.1 cm (5' 5) 01/27/2025 1:14 PM CDT Body Mass Index 17.06 01/27/2025 1:14 PM CDT Plan of Treatment Not on file Procedures Procedure Name Priority Date/Time Associated Diagnosis Comments DRUGS OF ABUSE SCREEN, URINE WITH REFLEX CONFIRMATION STAT 01/27/2025 2:59 PM CDT HCG, BLOOD, QUANTITATIVE STAT 01/27/2025 1:22 PM CDT EGFR STAT 01/27/2025 1:22 PM CDT URINALYSIS, MICROSCOPIC ONLY STAT 01/27/2025 1:22 PM CDT DIFFERENTIAL AUTO STAT 01/27/2025 1:2 2 PM CDT LIPASE STAT 01/27/2025 1:22 PM CDT COMPREHENSIVE METABOLIC PANEL STAT 01/27/2025 1:22 PM CDT CBC WITH AUTO DIFFERENTIAL STAT 01/27/2025 1:22 PM CDT URINALYSIS AND REFLEX TO MICROSCOPIC AND CULTURE STAT 01/27/2025 1:22 PM CDT EGFR STAT 01/17/2025 8:24 AM CDT URINALYSIS, [...] Recently Relevant to Health Maintenance Results * (ABNORMAL) Drugs of Abuse Screen, Urine with Reflex Confirmation (01/27/2025 2:59 PM CDT) Amphetamine, ur Not Detected CutOff 500ng/mL Comment: Interpretive Data - Amphetamines: Samples containing greater than 500 ng/mL d-methamphetamine or other cross-reacting amphetamine compounds are reported as positive. Amphetamine immunoassays are subject to significant false positive rates due to cross-reactivity of non-amphetamine drugs. Confirmatory testing required for definitive results. Current Interpretive Data was last reviewed 2023. Testing performed by: [address] [address] Barbiturates, ur Not Detected CutOff 200ng/mL [facility] Comment: Interpretive Data - Barbiturates: Samples containing greater than 200 ng/mL secobarbital or other cross-reacting barbiturate compounds are reported as positive. False positive and false negative results are possible. Confirmatory testing required for definitive results. Current Interpretive Data was last reviewed 2023. Testing performed by: [address] [address] Benzodiazepines, ur Not Detected CutOff 100ng/mL [facility] Comment: Interpretive Data - Benzodiazepines: Samples containing greater than 100 ng/mL nordiazepam or other cross-reacting compounds are reported as positive. False positive and false negative results are possible. Confirmatory testing required for definitive results. Current Interpretive Data was last reviewed 2023. Testing performed by: [address] [address] Cannabinoids, ur Screen Positive, presumptive (A) CutOff 50 ng/mL [facility] Comment: Interpretive Data - Cannabinoids: Samples containing greater than 50 ng/mL delta-9 THC -COOH or other cross- reacting compounds are reported as positive. False positive and false negative results are possible. Confirmatory testing required for definitive results. Current Interpretive Data was last reviewed 2023. Testing performed by: [address] [place] [address] Cocaine, ur Not Detected CutOff 150ng/mL [facility] Comment: Interpretive Data - Cocaine: Samples containing greater than 150 ng/mL benzoylecgonine or other cross- reacting compounds are reported as positive. False positive and false negative results are possible. Confirmatory testing required for definitive results. Current Interpretive Data was last reviewed 2023. Testing performed by: [address] [address] Fentanyl, Ur Not Detected CutOff 5 ng/mL [facility] Comment: Interpretive Data - Fentanyl: Samples containing greater than 1 ng/mL fentanyl or other cross-reacting fentanyl compounds are reported as positive. False positive and false negative results are possible. Confirmatory testing required for definitive results. Current Interpretive Data was last reviewed 2023. Testing performed by: [address] [address] Methadone, ur Not Detected CutOff 300ng/mL [facility] Comment: Interpretive Data - Methadone: Samples containing greater than 300 ng/mL d,l-methadone or other cross-reacting compounds are reported as positive. False positive and false negative results are possible. Confirmatory testing required for definitive results. Current Interpretive Data was last reviewed 2023. Testing performed by: [address] [address] Opiates, ur Not Detected CutOff 300ng/mL [facility] Comment: Interpretive Data - Opiates: Samples containing greater than 300 ng/mL morphine or other cross-reacting compounds are reported as positive. False positive and false negative results are possible. Confirmatory testing required for definitive results. Current Interpretive Data was last reviewed 2023. Testing performed by: [address] [address] Oxycodone, ur Not Detected CutOff 100ng/mL [facility] Comment: Interpretive Data - Oxycodone: Samples containing greater than 100 ng/mL oxycodone or other cross-reacting compounds are reported as positive. False positive and false negative results are possible. Confirmatory testing required for definitive results. Current Interpretive Data was last reviewed 2023. Testing performed by: [address] [address] Phencyclidine, ur Not Detected CutOff 25 ng/mL [facility] Comment: Interpretive Data - Phencyclidine: Samples containing greater than 25 ng/mL phencyclidine or other cross-reacting compounds are reported as positive. False positive and false negative results are possible. Confirmatory testing required for definitive results. Current Interpretive Data was last reviewed 2023. Testing performed by: [address] [address] Urine Creatinine 312 mg/dL [facility] Comment: Interpretive Data Urine Creatinine: < 10 mg/dL is extremely dilute = or > 10 but < 20 mg/dL is dilute = or > 20 mg/dL is normal Current Interpretive Data was last revised on 2017. Testing performed by: [address] [address] Urine 01/27/2025 2:59 PM CDT 01/27/2025 3:07 PM CDT Narrative [facility] - 01/27/2025 3:33 PM CDT Drug of Abuse screening is performed by immunoassay for medical purposes only. This is not to be used for Pain Management purposes. If Detected, confirmation testing will be performed for Amphetamines, Cocaine, Fentanyl, Methadone, Opiates, Oxycodone or Phencyclidine. Kate Mo NP LAB URINE ORDERABLES Final Re sult [facility] [address] [facility] Department of Laboratories [place], [place] [id number] * eGFR (01/27/2025 1:22 PM CDT) eGFR >90 >=60 mL/min/1. 73 m2 [...] of Race in Diagnosing Kidney Disease, JASN 202). The CKD-EPI equation should not be used for patients with unstable renal function and has not been validated in children and those over 70. Current interpretive data was last reviewed 2021. Testing performed by: [address] [address] Blood 01/27/2025 1:22 PM CDT 01/27/2025 1:47 PM CDT us Anthony Jensen MD LAB BLOOD ORDERABLE S Final Result [facility] [place] [address] * Differential, auto (01/27/2025 1:22 PM CDT) Neutrophil abs 3.10 1.50 - 6.50 K/cumm Comment:Testing performed by : [address] [address] Imm gran abs 0.01 0.00 - 0.10 K/cumm [facility] Comment:Testing performed by : [address] [address] Lymphocyte abs 1.29 0.80 - 3.30 K/cumm [facility] Comment:Testing performed by : [address] [address] Monocyte abs 0.53 0.20 - 0.80 K/cumm [facility] Comment:Testing performed by : [address] [address] Eosinophil abs 0.02 0.00 - 0.50 K/cumm [facility] Comment:Testing performed by : [address] [address] Basophil abs 0.06 0.00 - 0.10 K/cumm [facility] Comment:Testing performed by : [address] [address] Neutrophil pct 61.9 % [facility] Comment: Interpretive Data Percent cell count reference ranges are not reported, since discordance with absolute values may lead to misinterpretation of CBC data. Current Interpretive Data was last revised on 2018. Testing performed by: [address] [address] Imm gran pct 0.2 % [facility] Comment: Interpretive Data Percent cell count reference ranges are not reported, since discordance with absolute values may lead to misinterpretation of CBC data. Current Interpretive Data was last revised on 2018. Testing performed by: [address] [address] Lymphocyte pct 25.7 % [facility] Comment: Interpretive Data Percent cell count reference ranges are not reported, since discordance with absolute values may lead to misinterpretation of CBC data. Current Interpretive Data was last revised on 2018. Testing performed by: [address] [address] Monocyte pct 10.6 % [facility] Comment: Interpretive Data Percent cell count reference ranges are not reported, since discordance with absolute values may lead to misinterpretation of CBC data. Current Interpretive Data was last revised on 2018. Testing performed by: [address] [address] Eosinophil pct 0.4 % [facility] Comment: Interpretive Data Percent cell count reference ranges are not reported, since discordance with absolute values may lead to misinterpretation of CBC data. Current Interpretive Data was last revised on 2018. Testing performed by: [address] [address] Basophil pct 1.2 % [facility] Comment: Interpretive Data Percent cell count reference ranges are not reported, since discordance with absolute values may lead to misinterpretation of CBC data. Current Interpretive Data was last revised on 2018. Testing performed by: [address] [address] Blood 01/27/2025 1:22 PM CDT 01/27/2025 1:47 PM CDT us Anthony Jensen MD LAB BLOOD ORDERABLE S Final Result [facility] [address] [facility] [place] [address] * (ABNORMAL) Urinalysis reflex to microscopic and culture Urine (01/27/2025 1:22 PM CDT) Color, ur Yellow Yellow Comment:Testing performed by : [address] [address] Clarity, ur Cloudy(A) Clear [facility] Comment:Testing performed by : [address] [address] Specific gravity, ur 1.030 1.003 - 1.030 [facility] Comment:Testing performed by : [address] [address] pH, urine 7.5 [facility] Comment: Interpretive Data U rine pH is affected by diet, medications, systemic acid-base disturbances, and renal tubular function. pH may affect urinary stone formation. For example, urine pH below 6.0 may help reduce the tendency for calcium phosphate stones and pH greater than 6.0 may reduce the tendency for uric acid stone formation. Source: [facility] Current Interpretive Data was last revised on 2017 Testing performed by: [address] [address] Protein, ur ql 1+(A) Negative [facility] Comment:Testing performed by : [address] [address] Glucose, ur ql Negative Negative [facility] Comment:Testing performed by : [address] [address] Ketones, ur 3+(A) Negative [facility] Comment:Testing performed by : [address] [address] Bilirubin, ur Negative Negative [facility] Comment:Testing performed by : [address] [address] Blood, ur Negative Negative [facility] Comment:Testing performed by : [address] [address] Urobilinogen, ur <2.0 <2.0 mg/dL [facility] [place] Comment:Testing performed by : [address] [address] Nitrite, ur Negative Negative [facility] [place] Comment:Testing performed by : [address] [address] Leukocyte esterase, ur Negative Negative [facility] [place] Comment:Testing performed by : [address] [address] UA reflex comment Reflex to microscopic UA will be performed. [facility] [place] Comment:Testing performed by : [address] [address] Urine 01/27/2025 1:22 PM CDT 01/27/2025 1:47 PM CDT us Anthony Jensen MD LAB MICROBIOLOGY - GENERAL ORDERABLES Final Result [facility] [address] [place] [address] [place] [address] * (ABNORMAL) CBC with auto differential (01/27/2025 1:22 PM CDT) WBC 5.01 3.80 - 9.90 K/cumm Comment:Testing performed by : [address] [address] Hgb 12.7 11.9 - 15.5 g/dL [facility] [place] Comment:Testing performed by : [address] [address] Hct 37.5 35.6 - 45.5 % [facility] [place] Comment:Testing performed by : [address] [address] Plt 280 150 - 400 K/cumm [facility] [place] Comment:Testing performed by : [address] [address] MPV 10.1 9.1 - 12.3 fL [facility] [place] Comment:Testing performed by : [address] [address] RBC 4.06 3.90 - 5.20 M/cumm [facility] [place] Comment:Testing performed by : [facility], [address] [place] [address]., [address] MCV 92.4 81.3 - 96.4 fL [facility] [place] Comment:Testing performed by : [address] [address] MCH 31.3 27.1 - 33.3 pg [facility] [place] Comment:Testing performed by : [address] [address] MCHC 33.9 32.3 - 35.7 g/dL [facility] [place] Comment:Testing performed by : [address] [address] RDW CV 14.5 11.1 - 14.9 % [facility] [place] Comment:Testing performed by : [address] [address] RDW SD 49.1(H) 35.7 - 48.1 fL [facility] [place] Comment:Testing performed by : [address] [address] NRBC abs 0.00 0.00 - 0.01 K/cumm [facility] Comment:Testing performed by : [address] [address] Blood Venous blood specimen / Unknown 01/27/2025 1:22 PM CDT 01/27/2025 1:47 PM CDT us Anthony Jensen MD LAB BLOOD ORDERABLE S Final Result [facility] [address] [facility] Department of Laboratories [place], [place] [id number] * (ABNORMAL) Urinalysis, microscopic only (01/27/2025 1:22 PM CDT) WBC, ur 0-5 0 - 5 /HPF Comment:Testing performed by : [address] [address] RBC, ur 3-5(A) 0 - 2 /HPF [facility] [place] Comment:Testing performed by : [address] [place] [address] Epithelial cells, squamous, ur >50(A) 0 - 5 /HPF [facility] Comment:Testing performed by : [address] [address] Bacteria, ur Trace(A) [facility] Comment:Testing performed by : [address] [address] Mucous, ur Present(A) [facility] Comment:Testing performed by : [address] [address] Culture Reflex Comment Reflex conditions for urine culture (WBC >10) not met. [facility] Comment:Testing performed by : [address] [address] Urine 01/27/2025 1:22 PM CDT 01/27/2025 1:47 PM CDT Anthony Jensen MD LAB URINE ORDERABLE S Final Result Performing Organization Address [facility] de Phone Number [address] [place] [address] * (ABNORMAL) hCG, blood, quantitative (01/27/2025 1:22 PM CDT) hCG, quant 137,309.0 (H) 0.0 - 5.0 IUnits/L Comment: Interpretive Data Male: < 5 IU/L Non- premenopausal Female: <5 IU/L The Wenceslao hCG Beta Quant assay procedure was used. Results from different manufacturers or methods may not be comparable. Serial testing should be performed using the same method. Interpretive Data was last revised on 2023 Testing performed by: [address] [address] Blood 01/27/2025 1:22 PM CDT 01/27/2025 1:47 PM CDT Anthony Jensen MD LAB BLOOD ORDERABLE S Final Result Performing Organization Address [facility] de Phone Number [place] [phone] [facility] [place] [address] * Lipase (01/27/2025 1:22 PM CDT) Pathologist [facility] [place] Lipase 12 10 - 99 Units/L Comment:Testing performed by : [address] [address] Blood Venous blood specimen / Unknown 01/27/2025 1:22 PM CDT 01/27/2025 1:47 PM CDT us Anthony Jensen MD LAB BLOOD ORDERABLE S Final Result [facility] [address] [facility] [place] [address] * (ABNORMAL) Comprehensive metabolic panel (01/27/2025 1:22 PM CDT) Pathologist [facility] [place] Sodium 135 135 - 145 mmol/L Comment:Testing performed by : [address] [address] Potassium, pl 3.5 3.3 - 4.9 mmol/L [facility] Comment:Testing performed by : [address] [address] Chloride 100 97 - 110 mmol/L [facility] Comment:Testing performed by : [address] [address] CO2 24 22 - 32 mmol/L [facility] Comment:Testing performed by : [address] [address] Anion gap 11 2 - 15 mmol/L [facility] Comment:Testing performed by : [address] [address] BUN 8 6 - 25 mg/dL [facility] Comment:Testing performed by : [address] [address] Creatinine 0.57(L) 0.60 - 1.10 mg/dL [facility] Comment:Testing performed by : [address] [address] Glucose 85 70 - 199 mg/dL [facility] Comment: Interpretive [...] was last revised 2022. Testing performed by: [address] [address] Calcium 10.0 8.5 - 10.3 mg/dL [facility] Comment:Testing performed by : [address] [address] Bilirubin, total 0.6 0.1 - 1.2 mg/dL [facility] Comment:Testing performed by : [address] [address] Protein, pl 7.8 6.5 - 8.5 g/dL [facility] Comment:Testing performed by : [address] [address] Albumin 4.6 3.5 - 5.0 g/dL [facility] Comment:Testing performed by : [address] [address] Alk phos 42 40 - 130 Units/L [facility] Comment:Testing performed by : [address] [address] ALT 11 7 - 45 Units/L [facility] Comment:Testing performed by : [address] [address] AST 18 10 - 45 Units/L [facility] Comment:Testing performed by : [address] [address] Blood 01/27/2025 1:22 PM CDT 01/27/2025 1:47 PM CDT us Anthony Jensen MD LAB BLOOD ORDERABLE S Final Result Performing Organization Address City/State/[facility] de Phone Number [place] [phone] [facility] Department [place] [address] * eGFR (01/17/2025 8:24 AM CDT) eGFR [...] was last reviewed 2021. Testing performed by: [address] [address] Blood 01/17/2025 8:24 AM CDT 01/17/2025 8:34 AM CDT us Sterling Henry MD LAB BLOOD ORDERABLES Final Resul t Performing Organization Address [facility] Co de Phone Number [place] [phone] [facility] [place] [address] * Differential, auto (01/17/2025 8:24 AM CDT) Pathologist [facility] [place] Neutrophil abs 3.41 1.50 - 6.50 K/cumm Comment:Testing performed by : [address] [address] Imm gran abs 0.01 0.00 - 0.10 K/cumm [facility] Comment:Testing performed by : [address] [address] Lymphocyte abs 1.65 0.80 - 3.30 K/cumm [facility] Comment:Testing performed by : [address] [address] Monocyte abs 0.65 0.20 - 0.80 K/cumm [facility] Comment:Testing performed by : [address], [place]., [address] Eosinophil abs 0.04 0.00 - 0.50 K/cumm [facility] Comment:Testing performed by : [address], [place]., [address] Basophil abs 0.09 0.00 - 0.10 K/cumm [facility] Comment:Testing performed by : [address] [address] Neutrophil pct 58.3 % [facility] Comment: Interpretive Data Percent cell count reference ranges are not reported, since discordance with absolute values may lead to misinterpretation of CBC data. Current Interpretive Data was last revised on 2018. Testing performed by: [address] [address] Imm gran pct 0.2 % [facility] Comment: Interpretive Data Percent cell count reference ranges are not reported, since discordance with absolute values may lead to misinterpretation of CBC data. Current Interpretive Data was last revised on 2018. Testing performed by: [address] [address] Lymphocyte pct 28.2 % [facility] Comment: Interpretive Data Percent cell count reference ranges are not reported, since discordance with absolute values may lead to misinterpretation of CBC data. Current Interpretive Data was last revised on 2018. Testing performed by: [address] [address] Monocyte pct 11.1 % [facility] Comment: Interpretive Data Percent cell count reference ranges are not reported, since discordance with absolute values may lead to misinterpretation of CBC data. Current Interpretive Data was last revised on 2018. Testing performed by: [address] [address] Eosinophil pct 0.7 % [facility] Comment: Interpretive Data Percent cell count reference ranges are not reported, since discordance with absolute values may lead to misinterpretation of CBC data. Current Interpretive Data was last revised on 2018. Testing performed by: [address] [address] Basophil pct 1.5 % [facility] Comment: Interpretive Data Percent cell count reference ranges are not reported, since discordance with absolute values may lead to misinterpretation of CBC data. Current Interpretive Data was last revised on 2018. Testing performed by: [address] [address] Blood 01/17/2025 8:24 AM CDT 01/17/2025 8:34 AM CDT us Sterling Henry MD LAB BLOOD ORDERABLES Final Resul t [facility] [address] [facility] [place] [address] * (ABNORMAL) Urinalysis reflex to microscopic and culture Urine (01/17/2025 8:24 AM CDT) Color, ur Yellow Yellow Comment:Testing performed by : [address] [address] Clarity, ur Cloudy(A) Clear [facility] Comment:Testing performed by : [address] [address] Specific gravity, ur 1.029 1.003 - 1.030 [facility] Comment:Testing performed by : [address] [address] pH, urine 6.5 [facility] Comment: Interpretive Data U rine pH is affected by diet, medications, systemic acid-base disturbances, and renal tubular function. pH may affect urinary stone formation. For example, urine pH below 6.0 may help reduce the tendency for calcium phosphate stones and pH greater than 6.0 may reduce the tendency for uric acid stone formation. Source: [facility] Current Interpretive Data was last revised on 2017 Testing performed by: [address] [address] Protein, ur ql 1+(A) Negative [facility] Comment:Testing performed by : [facility], [address] [place] [address], [place]., [address] Glucose, ur ql Negative Negative [facility] Comment:Testing performed by : [facility], [address] [place] [address], [place]., [address] Ketones, ur 3+(A) Negative [facility] Comment:Testing performed by : [address], [place]., [address] Bilirubin, ur Negative Negative [facility] Comment:Testing performed by : [address], [place]., [address] Blood, ur Negative Negative [facility] Comment:Testing performed by : [address], [place]., [address] Urobilinogen, ur 2.0(A) <2.0 mg/dL [facility] Comment:Testing performed by : [address], [place]., [address] Nitrite, ur Negative Negative [facility] Comment:Testing performed by : [address], [place]., [address] Leukocyte esterase, ur Negative Negative [facility] Comment:Testing performed by : [address], [place]., [address] UA reflex comment Reflex to microscopic UA will be performed. [facility] Comment:Testing performed by : [address], [place]., [address] Urine 01/17/2025 8:24 AM CDT 01/17/2025 8:34 AM CDT us Sterling Henry MD LAB MICROBIOLOGY - GENERAL ORDER HIRAL Final Result [facility] [address] [facility] [place] [address] * (ABNORMAL) CBC with auto differential (01/17/2025 8:24 AM CDT) WBC 5.85 3.80 - 9.90 K/cumm Comment:Testing performed by : [address], [place]., [address] Hgb 12.4 11.9 - 15.5 g/dL DARWIN Comment:Testing performed by : [address] [address] Hct 36.4 35.6 - 45.5 % DARWIN Comment:Testing performed by : [address] [address] Plt 348 150 - 400 K/cumm DARWIN Comment:Testing performed by : [address] [address] MPV 9.8 9.1 - 12.3 fL DARWIN Comment:Testing performed by : [address], [address] RBC 3.97 3.90 - 5.20 M/cumm DARWIN Comment:Testing performed by : [address] [address] MCV 91.7 81.3 - 96.4 fL DARWIN Comment:Testing performed by : [address] [address] MCH 31.2 27.1 - 33.3 pg DARWIN Comment:Testing performed by : [address], [address] MCHC 34.1 32.3 - 35.7 g/dL DARWIN Comment:Testing performed by : [address] [address] RDW CV 14.6 11.1 - 14.9 % DARWIN Comment:Testing performed by : [address], [address] RDW SD 49.4(H) 35.7 - 48.1 fL DARWIN Comment:Testing performed by : [address], [address] NRBC abs 0.00 0.00 - 0.01 K/cumm DARWIN Comment:Testing performed by : [address] [address] Blood Venous blood specimen / Unknown 01/17/2025 8:24 AM CDT 01/17/2025 8:34 AM CDT Sterling Henry MD LAB BLOOD ORDERABLES Final Resul t Performing Organization Address [facility] de Phone Number DARWIN [address] [address] * (ABNORMAL) Urinalysis, microscopic only (01/17/2025 8:24 AM CDT) WBC, ur 0-5 0 - 5 /HPF Comment:Testing performed by : [address] [address] RBC, ur 3-5(A) 0 - 2 /HPF DARWIN Comment:Testing performed by : [address] [address] Epithelial cells, squamous, ur >50(A) 0 - 5 /HPF DARWIN Comment:Testing performed by : [address] [address] Mucous, ur Present(A) DARWIN Comment:Testing performed by : [address] [address] Culture Reflex Comment Reflex conditions for urine culture (WBC >10) not met. DARWIN Comment:Testing performed by : [address] [address] Urine 01/17/2025 8:24 AM CDT 01/17/2025 8:34 AM CDT Sterling Henry MD LAB URINE ORDERABLES Final Resul t Performing Organization Address [facility] de Phone Number DARWIN [address] [facility] [place] [address] * (ABNORMAL) hCG, blood, quantitative (01/17/2025 8:24 [...] last revised on 2023 Testing performed by: [address] [address] Blood 01/17/2025 8:24 AM CDT 01/17/2025 8:34 AM CDT Sterling Henry MD LAB BLOOD ORDERABLES Final Resul t Performing Organization Address [facility] de Phone Number [address] [place] [address] * Lipase (01/17/2025 8:24 AM CDT) [facility] [address] Lipase 15 10 - 99 Units/L Comment:Testing performed by : [address] [address] Blood Venous blood specimen / Unknown 01/17/2025 8:24 AM CDT 01/17/2025 8:34 AM CDT Sterling Henry MD LAB BLOOD ORDERABLES Final Resul t Performing Organization Address [facility] de Phone Number [address] [address] * (ABNORMAL) Comprehensive metabolic panel (01/17/2025 8:24 AM CDT) [facility] [address] Sodium 136 135 - 145 mmol/L Comment:Testing performed by : [address] [address] Potassium, pl 3.5 3.3 - 4.9 mmol/L DARWIN Comment:Testing performed by : [address] [address] Chloride 100 97 - 110 mmol/L DARWIN Comment:Testing performed by : [address] [address] CO2 24 22 - 32 mmol/L DARWIN Comment:Testing performed by : [address] [address] Anion gap 12 2 - 15 mmol/L DARWIN Comment:Testing performed by : [address] [address] BUN 10 6 - 25 mg/dL DARWIN Comment:Testing performed by : [address] [address] Creatinine 0.62 0.60 - 1.10 mg/dL DARWIN Comment:Testing performed by : [address] [address] Glucose 83 70 - 199 mg/dL [facility] Comment: Interpretive Data Fasting glucose >/= 126 [...] was last revised 2022. Testing performed by: [address] [address] Calcium 10.3 8.5 - 10.3 mg/dL [facility] Comment:Testing performed by : [address] [address] Bilirubin, total 1.3(H) 0.1 - 1.2 mg/dL DARWIN Comment:Testing performed by : [address] [address] Protein, pl 7.8 6.5 - 8.5 g/dL DARWIN Comment:Testing performed by : [address] [address] Albumin 4.7 3.5 - 5.0 g/dL DARWIN Comment:Testing performed by : [address] [address] Alk phos 46 40 - 130 Units/L DARWIN Comment:Testing performed by : [address] [address] ALT 12 7 - 45 Units/L DARWIN Comment:Testing performed by : [facility], [address] [place] [address]., [address] AST 19 10 - 45 Units/L [facility] Comment:Testing performed by : [address] [address] Blood 01/17/2025 8:24 AM CDT 01/17/2025 8:34 AM CDT Sterling Henry MD LAB BLOOD ORDERABLES Final Resul t Performing Organization Address [facility] Co de Phone Number [facility] [address] [facility] [place] [address] * Hepatitis panel, acute Blood (07/05/2023 3:37 PM CDT) Hep A IgM Nonreactive Nonreactive Comment: Interpretive Data: If Hep A IgM Ab is reported as Equivocal, a new sample should be drawn in two weeks for testing. Current interpretive data was last revised on 19. Hep B core IgM Nonreactive Nonreactive [facility] Comment: Interpretive Data If HepB Core IgM Ab is reported as Equivocal, a new sample should be drawn in two weeks for testing. Current interpretive data was last revised on 19. Hep C Ab Nonreactive Nonreactive [facility] Comment: Interpretive Data Nonreactive: Antibodies to HCV [...] last revised on 2019. HepBsAg Nonreactive Nonreactive [facility] Blood 07/05/2023 3:37 PM CDT 07/05/2023 6:33 PM CDT us Pinky Rossi MD LAB MICROBIOLOGY - GENERAL ORDERABLES Final Result Performing Organization Address City/[facility]/ZIP Co de Phone Number [facility] [address] [place] [address] * Pap with reflex to High Risk HPV (02/09/2022 11:05 AM CDT) Thin prep (Pap test) 02/09/2022 11:05 AM CDT 02/10/2022 11:05 AM CDT Narrative PATHOLOGY [facility] - 02/12/2022 11:00 AM CDT [facility] Department of Pathology [address] [place], [place] [id number] Final Report Note to Patients: This report [...] the details. Patient Name: ELDA MCKINNEY Address: [address] [place] [address] Gender: F : 2000 (Age: 21) Service: Laboratory Location: Hospital #: [id number] Patient Type: [facility] SPECIMEN Taken: 02/09/2022 Received: 02/10/2022 Accessioned:: 02/11/2022 Reported: 02/12/2022 Physician(s): Robyn Laws PA-C [facility] Diagnosis: Source of Specimen: Imaged Thinprep Pap Test w/ Reflex HPV - Rn Emergency Room Cytologic Material Specimen Adequacy: - Satisfactory for evaluation; endocervical/transformation zone component present General Category: - Negative for intraepithelial lesion or malignancy DALIA Momin(ASCP) Report Electronically Reviewed and Signed Out By DALIA Momin(ASCP) 02/12/2022 11:00:56 Specimen(s) Received: A: Imaged Thinprep Pap Test w/ Reflex HPV - Rn Emergency Room Cytologic Material Clinical History: Last Menstrual Period: [...] determined by the Surgical Pathology Department at [facility] as part of an ongoing quality checker program and in compliance with federally mandated [...] characteristics determined by the Surgical Pathology Department [facility]. It has not been cleared or approved by the U. S. Food and Drug Administration. Robyn AN LAB CYTOLOGY ORDERABLES Critical access hospital Result PATHOLOGY [facility] from Last 3 Months or Most Recently Relevant to Health Maintenance Insurance [facility] OTHER Address: [address] [place] [address] [employer]PA Care Teams Document Processor Relationship Specialty Start Date End Date No, Physician PCP - General 01/17/25
--- OUTSIDE RECORDS SUMMARY | 2025-02-15 13:47 | XMS_ITS | Clinical Summary ---
Author Organization [facility] [employer] [place] Address [address] [place] [id number] Care Team Providers Care Relocation Specialist Name Role Phone Unavailable Primary Care Provider [...] 3:23 PM CDT Height 165.1 cm (5' 5) 05/26/2020 3:23 PM CDT Body Mass Index [...]
--- OUTSIDE RECORDS SUMMARY | 2025-02-15 13:47 | XMS_ITS | Clinical Summary ---
Author Organization [facility] Address [address] [place] [address] Care Team Providers Care Family Mediator Name Role Phone Unavailable Primary Care Provider Unavailabl e Social History Tobacco Use Types Packs/Day Years Used Date Smoking Tobacco: Never Assessed Comments Unknown Sex and Gender Information Value Date Recorded Sex Assigned at Not on file Legal Sex Female 3:06 PM [employer] Gender Identity Not on file Sexual Orientation [...]
--- OUTSIDE RECORDS SUMMARY | 2025-02-15 13:47 | XMS_ITS | Data Portability ---
Author Organization [facility] [place] Address [address] [place] [address] Assessment Encounter Date Assessment Date Assessment LastModified by Organization Details LastModified Time 01/28/2025 01/28/2025 Patient is ___weeks . Discussed plan. Not available 01/28/2025 17:47:20 Plan of Treatment Reminders Order Date Submit Date Provider Last Modified By Organization Details Last Modified Time Details Appointments U/S OB FIRST LOOK 2024 04:00P M ULTRASOUND Not available Not available Not available OB NEW 2024 04:30P M Aldo CHEN MD Not available Not available Not available Lab None record ed. Referral None record ed. Procedures None record ed. Surgeries None record ed. Imaging None record ed. Medication Orders None record ed. Patient TargetsNo targets recorded. Patient InstructionsNo instructions recorded. Reason for Referral None Reported. Results Created Date Observation Date Name Description Value Unit Range Abnormal Flag Note LastModifiedBy Organization Detail LastModifiedTime 01/29/20 25 01/28/2025 US, obste tric, 1st trime ster No observ ation record ed. [email or web address], [place], [address], 01/29/2025 10:48:24 Result Notes None recorded. Procedures Surgical History Date Name Laterality Status Provider Name and Address Organization Details Recorded Time 4 extraction of wisdom tooth completed Oksana Malone [facility] 01/28/2025 17:54:23 3 Date of Last Pap Smear completed Oksana Malone [facility] 01/28/2025 17:50:47 Imaging Results Imaging Date Name Status LastModified by Organiz ation Details LastModified Time 01/28/2025 US, obstetric, 1st trimester completed [email or web address], [place], [address], 01/29/2025 10:48:24 Procedure Notes None recorded. Medical Equipment None Reported. Allergies No known drug allergies Medications Name Sig Start Date Stop Date Status Note LastModified by Organization Details LastModified Time promethazin e 25 mg rectal suppository Insert 1 supposito ry every 8 hours by rectal route. 2024 active Not Available Not Available Not Avai lable Zofran 4 mg tablet Take 2 tablets twice a day by oral route. active Not Available Not Available No t Available ondansetron 4 mg disintegrat ing tablet DISSOLVE 1 TABLET ON THE TONGUE EVERY 6 TO 8 HOURS NEEDED active Not Available Not Available No t Available cyclobenzap rine 5 mg tablet TAKE 1 TABLET BY MOUTH EVERY 8 HOURS NEEDED FOR MUSCLE PAIN 01/28 completed Not Available Not Available Not Available nitrofurant oin monohydrate /macrocryst als 100 mg capsule TAKE 1 CAPSULE BY MOUTH TWICE DAILY 01/28 completed Not Available Not Available Not Available active Not Available Not Avai lable Not Available Vitals Date Recorded Body height Body mass index (BMI) Body weight Systolic blood pressure Diastolic blood pressure Provider Name and Address Organization Details Last Updated DateTime 01/28/2025 165.1 cm 17.3 kg/m2 10211.61 g 116 mm[Hg] 73 mm[Hg] Oksana Malone [facility] 17:49:36 Social History Question Answer Notes LastModified by Organizat ion Details LastModified Time Tobacco Smoking Status Never Smoker Oksana Malone [facility] 01/28/2025 17:52:32 Do You Have An Advance Directive? Yes Information n ot available 01/28/2025 Are You Blind Or Do You Have Difficulty Seeing? No Information n ot available 01/28/2025 What Is Your Level Of Caffeine Consumption? None Information not available 01/28/2025 In The 14 Days Before Symptom Onset, Have You Had Close Contact With A Laboratory-confirm ed COVID-19 While That Case Was Ill? No Information n ot available 01/28/2025 In The 14 Days Before Symptom Onset, Have You Had Close Contact With A Person Who Is Under Investigation For COVID-19 While That Person Was Ill? No Information not available 01/28/2025 Have You Been To An Area Known To Be High Risk For COVID-19? No Information not available 01/28/2025 Are You Deaf Or Do You Have Serious Difficulty Hearing? No Information not available 01/28/2025 What Type Of Diet Are You Following? REGULAR Information n ot available 01/28/2025 What Is The Highest Grade Or Level Of School You Have Completed Or The Highest Degree You Have Received? [id number] Information not available 01/28/2025 Are There Any Guns Present In Your Home? No Information not available 01/28/2025 Do You Use Protection During Sex? No Information not available 01/28/2025 Do You Use Your Seat Belt Or Car Seat Routinely? Yes Information not available 01/28/2025 Are You Sexually Active? Yes Information not available 01/28/2025 Do You Have Smoke And Carbon Monoxide Detectors In Your Home? Yes Information not available 01/28/2025 Do You Use Sunscreen Routinely? No Information not available 01/28/2025 Do You Have Difficulty Walking Or Climbing Stairs? No Information not available 01/28/2025 Sex: Unknown Functional Status Question Answer Note LastModified by Organizat ion Details LastModified Time Do you use any illicit or recreational drugs? No Information not available 01/28/2025 What is your level of alcohol consumption? None Information not available 01/28/2025 Are you currently employed? Yes Information not available 01/28/2025 Are you able to walk? YESWOREST Information not available 01/28/2025 Are you able to care for yourself? 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 No Information not available 01/28/2025 What is your exercise level? Occasional Information not available 01/28/2025 Mental Status Question Answer Note LastModified by Organization D etails LastModified Time Do you feel stressed (tense, restless, nervous, or anxious, or unable to sleep at night)? [id number] Information not available 01/28/2025 Family History Relationship Description Onset Age of this Age Resolved Age Notes LastModified by Organization Details LastModified Time Maternal Grandmother Hypertensive disorder Not available 2024 17:52:22 Maternal Aunt Hypertensive disorder Not available 2024 17:52:22 Medical History Condition Response Allergies (Food, seasonal, environmental ) N Other N Drug/Latex Allergies/Reactions N Blood Transfusion N Breast Cancer N Dermatologic Disorders N Lung Disease N Defects or Inherited Disease N Breast Problem N Gestational Diabetes N Hematologic disorders N Anesthesia Complications N History of STI N Deep Vein Thrombosis N Polycystic ovary syndrome N Anxiety Disorder N Autoimmune disease N Arthritis N Polyps N Infertility N Acid Reflux (GERD) N History of abnormal pap N Cancer N Varicosities N Stroke N Neurologic/Epilepsy N Endometriosis N High Cholesterol N Fibromyalgia N Headaches N Kidney Disease N Heart Problems N Thyroid Problems N Kidney or Bladder Problems N GI Problems N Eating Disorder N Anemia N Art (IVF or FET) N Psychiatric Illness N Ovarian Cancer N Diabetes N Pulmonary (TB, Asthma) N Hepatitis/Liver Disease N No Past Medical History Y Eczema N Urinary Tract Infection N Abuse/Domestic Violence N Asthma N Trauma/Violence N Depression/ depression N Heart Disease N Pre-Eclampsia N Hypertension N Osteoporosis N Thrombophilias N Gynecological History Statement/Question Response Abnormal Pap N Flow Moderate Date of LMP 12/02/2024 Was last menstrual period normal Y STIs/STDs N HPV Vaccine Y Duration of Flow (days) 4 Current Control Method Age at First Child 24 Are cycles usually normal Y Frequency of Cycle (Q days) 28 Sexually Active? Y Menses Monthly Y Age of first menstrual cycle 12 Date of Last Pap Smear 10/03/2022 Sexual Problems? N LMP Definite Obstetrics History GPAL:G 0 P 0 0 0 0 Past Encounters Encounter ID Performer Location Encounter Start Date Encounter Closed Date Diagnosis/Indication Diagnosis SNOMED-CT Code Diagnosis ICD10 Code Diagnosis Note [id number] Maco Chen MD [place] [address] [address] 01/28/2025 16:52:18 01/28/2025 17:19:22 [id number] Maco Chen MD [place] [address] [address] 01/28/2025 16:53:26 01/29/2025 04:58:29 Amenorrhea 57427366 N91.2 this patient is a 24-year-ol d female who presents for amenorrhea . She is a positive test. Ultrasound revealed a 1st trimester gestation. Patient has no complaints . We talked about early care. Talked about genetic screening. We talked about her ultrasound results. We talked about the 12 week ultrasound that has genetic screening components . She was given recommenda tions on exercise, diet, over-the-c ounter medication s. We reviewed her obstetric history. We reviewed her medical history. We reviewed her social history. She will begin routine care at her next visit. patient has severe nausea and vomiting. She has lost 10 lb. She has gone to the hospital 3 times for IV fluids. She reports her nausea vomiting getting better over the last couple of days. She is keeping liquids down part of the day. We will observe. She wants to observe until the end of the week and then Consider more treatment Health Concerns Section Related Observation LastModified by Organization Detai ls LastModified Time None Recorded Concern Status LastModified by Organization Details LastModified Time None Recorded Advance Directives Directive Y: Payers Encounter Date Sequence Insurance Name Policy Number Policy Preez Covered Member ID Perez Member ID Guarantor Name 01/28/2025 1 [place] [employer] Zulema Mckinney [id number] Zulema Mckinney 01/28/2025 1 [place] [employer] Zulema Faye [id number] Zulema Faye Notes Date Note Type Note Provider Name and Address Organization Details Recorded Time 01/28/2025 text/html this patient is a 24-year-old female who presents for amenorrhea. She is a positive test. Ultrasound revealed a 1st trimester gestation. Patient has no complaints. We talked about early care. Talked about genetic screening. We talked about her ultrasound results. We talked about the 12 week ultrasound that has genetic screening components. She was given recommendations on exercise, diet, [id number] medications. We reviewed her obstetric history. We reviewed her medical history. We reviewed her social history. She will begin routine care at her next visit. patient has severe nausea and vomiting. She has lost 10 lb. She has gone to the hospital 3 times for IV fluids. She reports her nausea vomiting getting better over the last couple of days. She is keeping liquids down part of the day. We will observe. She wants to observe until the end of the week and then Consider more treatment Maco Chen MD [address], [place], [address], [place] [facility] 01/28/2025 18:21:03 OBGyn Episode No OBEpisode recorded.
--- OUTSIDE RECORDS SUMMARY | 2025-02-15 13:47 | XMS_ITS ---
[address] [place] [address] Nausea/vomiting in (Primary Dx) Discharge Disposition: Discharge [...] on file Legal Sex Female 2:55 PM [employer] Gender Identity Not on file Sexual Orientation [...] 01/27/2025 1:14 PM CDT Plan of Treatment Health Maintenance [...] with Reflex Confirmation (01/27/2025 2:59 PM CDT) Pathologist [facility] Amphetamine, ur Not Detected CutOff 500ng/mL Comment: Interpretive Data - Amphetamines: Samples containing greater than 500 ng/mL d-methamphetamine or other cross-reacting amphetamine compounds are reported as positive. Amphetamine immunoassays are subject to significant false positive rates due to cross-reactivity of non-amphetamine drugs. Confirmatory testing required for definitive results. Current Interpretive Data was last reviewed 2023. Testing performed by: [address] [address] Barbiturates, ur Not Detected CutOff 200ng/mL [facility] Comment: Interpretive Data - Barbiturates: Samples containing greater than 200 ng/mL secobarbital or other cross-reacting barbiturate compounds are reported as positive. False positive and false negative results are possible. Confirmatory testing required for definitive results. Current Interpretive Data was last reviewed 2023. Testing performed by: [address] [address] Benzodiazepines, ur Not Detected CutOff 100ng/mL [facility] Comment: Interpretive Data - Benzodiazepines: Samples containing greater than 100 ng/mL nordiazepam or other cross-reacting compounds are reported as positive. False positive and false negative results are possible. Confirmatory testing required for definitive results. Current Interpretive Data was last reviewed 2023. Testing performed by: [address] [address] Cannabinoids, ur Screen Positive, presumptive (A) CutOff 50 ng/mL [facility]WIN Comment: Interpretive Data - Cannabinoids: Samples containing greater than 50 ng/mL delta-9 THC -COOH or other cross- reacting compounds are reported as positive. False positive and false negative results are possible. Confirmatory testing required for definitive results. Current Interpretive Data was last reviewed 2023. Testing performed by: [facility], [address] [place] [address]., [address] Cocaine, ur Not Detected CutOff 150ng/mL [facility] Comment: Interpretive Data - Cocaine: Samples containing greater than 150 ng/mL benzoylecgonine or other cross- reacting compounds are reported as positive. False positive and false negative results are possible. Confirmatory testing required for definitive results. Current Interpretive Data was last reviewed 2023. Testing performed by: [address] [address] Fentanyl, Ur Not Detected CutOff 5 ng/mL [facility] Comment: Interpretive Data - Fentanyl: Samples containing greater than 1 ng/mL fentanyl or other cross-reacting fentanyl compounds are reported as positive. False positive and false negative results are possible. Confirmatory testing required for definitive results. Current Interpretive Data was last reviewed 2023. Testing performed by: [address] [address] Methadone, ur Not Detected CutOff 300ng/mL [facility] Comment: Interpretive Data - Methadone: Samples containing greater than 300 ng/mL d,l-methadone or other cross-reacting compounds are reported as positive. False positive and false negative results are possible. Confirmatory testing required for definitive results. Current Interpretive Data was last reviewed 2023. Testing performed by: [address] [address] Opiates, ur Not Detected CutOff 300ng/mL [facility] Comment: Interpretive Data - Opiates: Samples containing greater than 300 ng/mL morphine or other cross-reacting compounds are reported as positive. False positive and false negative results are possible. Confirmatory testing required for definitive results. Current Interpretive Data was last reviewed 2023. Testing performed by: [address] [address] Oxycodone, ur Not Detected CutOff 100ng/mL [facility] Comment: Interpretive Data - Oxycodone: Samples containing greater than 100 ng/mL oxycodone or other cross-reacting compounds are reported as positive. False positive and false negative results are possible. Confirmatory testing required for definitive results. Current Interpretive Data was last reviewed 2023. Testing performed by: [address] [address] Phencyclidine, ur Not Detected CutOff 25 ng/mL [facility] Comment: Interpretive Data - Phencyclidine: Samples containing greater than 25 ng/mL phencyclidine or other cross-reacting compounds are reported as positive. False positive and false negative results are possible. Confirmatory testing required for definitive results. Current Interpretive Data was last reviewed 2023. Testing performed by: [address] [address] Urine Creatinine 312 mg/dL [facility] Comment: Interpretive Data Urine Creatinine: < 10 mg/dL is extremely dilute = or > 10 but < 20 mg/dL is dilute = or > 20 mg/dL is normal Current Interpretive Data was last revised on 2017. Testing performed by: [address] [address] Urine 01/27/2025 2:59 PM CDT 01/27/2025 3:07 [...] LAB URINE ORDERABLES Final Re sult [facility] [address] [facility] Department [place] [address] * eGFR (01/27/2025 1:22 PM CDT) eGFR [...] was last reviewed 2021. Testing performed by: [address] [address] Blood 01/27/2025 1:22 PM CDT 01/27/2025 1:47 PM CDT us Anthony Jensen MD LAB BLOOD ORDERABLE S Final Result [facility] [address] [facility] Department [place] [address] * Differential, auto (01/27/2025 1:22 PM CDT) Neutrophil abs 3.10 1.50 - 6.50 K/cumm Comment:Testing performed by : [address] [address] Imm gran abs 0.01 0.00 - 0.10 K/cumm [facility]WIN Comment:Testing performed by : [address] [address] Lymphocyte abs 1.29 0.80 - 3.30 K/cumm [facility] Comment:Testing performed by : [address] [address] Monocyte abs 0.53 0.20 - 0.80 K/cumm [facility] Comment:Testing performed by : [address] [address] Eosinophil abs 0.02 0.00 - 0.50 K/cumm [facility] Comment:Testing performed by : [address] [address] Basophil abs 0.06 0.00 - 0.10 K/cumm [facility]WIN Comment:Testing performed by : [address] [address] Neutrophil pct 61.9 % [facility] Comment: Interpretive Data Percent cell count reference ranges are not reported, since discordance with absolute values may lead to misinterpretation of CBC data. Current Interpretive Data was last revised on 2018. Testing performed by: [address] [address] Imm gran pct 0.2 % [facility] Comment: Interpretive Data Percent cell count reference ranges are not reported, since discordance with absolute values may lead to misinterpretation of CBC data. Current Interpretive Data was last revised on 2018. Testing performed by: [address] [address] Lymphocyte pct 25.7 % [facility] Comment: Interpretive Data Percent cell count reference ranges are not reported, since discordance with absolute values may lead to misinterpretation of CBC data. Current Interpretive Data was last revised on 2018. Testing performed by: [address] [address] Monocyte pct 10.6 % [facility] Comment: Interpretive Data Percent cell count reference ranges are not reported, since discordance with absolute values may lead to misinterpretation of CBC data. Current Interpretive Data was last revised on 2018. Testing performed by: [address] [address] Eosinophil pct 0.4 % [facility] Comment: Interpretive Data Percent cell count reference ranges are not reported, since discordance with absolute values may lead to misinterpretation of CBC data. Current Interpretive Data was last revised on 2018. Testing performed by: [address] [address] Basophil pct 1.2 % [facility] Comment: Interpretive Data Percent cell count reference ranges are not reported, since discordance with absolute values may lead to misinterpretation of CBC data. Current Interpretive Data was last revised on 2018. Testing performed by: [address] [address] Blood 01/27/2025 1:22 PM CDT 01/27/2025 1:47 PM CDT us Anthony Jensen MD LAB BLOOD ORDERABLE S Final Result [facility] [address] [facility] Department [place] [address] * (ABNORMAL) Urinalysis reflex to microscopic and culture Urine (01/27/2025 1:22 PM CDT) Color, ur Yellow Yellow Comment:Testing performed by : [address] [address] Clarity, ur Cloudy(A) Clear [facility] Comment:Testing performed by : [address] [address] Specific gravity, ur 1.030 1.003 - 1.030 [facility] Comment:Testing performed by : [address] [address] pH, urine 7.5 [facility] Comment: Interpretive Data U rine pH is affected by diet, medications, systemic acid-base disturbances, and renal tubular function. pH may affect urinary stone formation. For example, urine pH below 6.0 may help reduce the tendency for calcium phosphate stones and pH greater than 6.0 may reduce the tendency for uric acid stone formation. Source: [facility] [place] Current Interpretive Data was last revised on 2017 Testing performed by: [address] [address] Protein, ur ql 1+(A) Negative [facility] Comment:Testing performed by : [address] [address] Glucose, ur ql Negative Negative [facility] Comment:Testing performed by : [address] [address] Ketones, ur 3+(A) Negative [facility] Comment:Testing performed by : [address] [address] Bilirubin, ur Negative Negative [facility] [place] Comment:Testing performed by : [address] [address] Blood, ur Negative Negative [facility] [place] Comment:Testing performed by : [address] [address] Urobilinogen, ur <2.0 <2.0 mg/dL [facility] [place] Comment:Testing performed by : [address] [address] Nitrite, ur Negative Negative [facility] [place] Comment:Testing performed by : [address], [place]., [address] Leukocyte esterase, ur Negative Negative [facility] [place] Comment:Testing performed by : [address] [address] UA reflex comment Reflex to microscopic UA will be performed. [facility] [place] Comment:Testing performed by : [address] [address] Urine 01/27/2025 1:22 PM CDT 01/27/2025 1:47 PM CDT us Anthony Jensen MD LAB MICROBIOLOGY - GENERAL ORDERABLES Final Result [facility] [address] [facility] Department of Laboratories [place], [place] [id number] * (ABNORMAL) CBC with auto differential (01/27/2025 1:22 PM CDT) WBC 5.01 3.80 - 9.90 K/cumm Comment:Testing performed by : [address] [address] Hgb 12.7 11.9 - 15.5 g/dL [facility] [place] Comment:Testing performed by : [address] [address] Hct 37.5 35.6 - 45.5 % [facility] [place] Comment:Testing performed by : [address] [address] Plt 280 150 - 400 K/cumm [facility] [place] Comment:Testing performed by : [address] [address] MPV 10.1 9.1 - 12.3 fL [facility] [place] Comment:Testing performed by : [address] [address] RBC 4.06 3.90 - 5.20 M/cumm [facility] [place] Comment:Testing performed by : [address] [address] MCV 92.4 81.3 - 96.4 fL [facility] Comment:Testing performed by : [address] [address] MCH 31.3 27.1 - 33.3 pg [facility] [place] Comment:Testing performed by : [address] [address] MCHC 33.9 32.3 - 35.7 g/dL [facility] Comment:Testing performed by : [address] [address] RDW CV 14.5 11.1 - 14.9 % [facility] Comment:Testing performed by : [address] [address] RDW SD 49.1(H) 35.7 - 48.1 fL [facility] Comment:Testing performed by : [address] [address] NRBC abs 0.00 0.00 - 0.01 K/cumm [facility] Comment:Testing performed by : [address] [address] Blood Venous blood specimen / Unknown 01/27/2025 1:22 PM CDT 01/27/2025 1:47 PM CDT us Anthony Jensen MD LAB BLOOD ORDERABLE S Final Result [facility] [address] [facility] Department of Laboratories [place], [place] [id number] * (ABNORMAL) Urinalysis, microscopic only (01/27/2025 1:22 PM CDT) WBC, ur 0-5 0 - 5 /HPF Comment:Testing performed by : [facility], [address] [place] [address], [place]., [address] RBC, ur 3-5(A) 0 - 2 /HPF [facility] Comment:Testing performed by : [address], [place]., [address] Epithelial cells, squamous, ur >50(A) 0 - 5 /HPF [facility] Comment:Testing performed by : [address], [place]., [address] Bacteria, ur Trace(A) [facility] Comment:Testing performed by : [address], [place]., [address] Mucous, ur Present(A) [facility] Comment:Testing performed by : [address], [place]., [address] Culture Reflex Comment Reflex conditions for urine culture (WBC >10) not met. [facility] Comment:Testing performed by : [address], [place]., [address] Urine 01/27/2025 1:22 PM CDT 01/27/2025 1:47 PM CDT us Anthony Jensen MD LAB URINE ORDERABLE S Final Result [facility] [address] [facility] Department [place] [address] * (ABNORMAL) hCG, blood, quantitative (01/27/2025 1:22 [...] last revised on 2023 Testing performed by: [address], [place]., [address] Blood 01/27/2025 1:22 PM CDT 01/27/2025 1:47 PM CDT Anthony Jensen MD LAB BLOOD ORDERABLE S Final Result Performing Organization Address City/[facility] Co de Phone Number DARWIN [address] [address] * Lipase (01/27/2025 1:22 PM CDT) Pathologist [facility] Lipase 12 10 - 99 Units/L Comment:Testing performed by : [address] [address] Blood Venous blood specimen / Unknown 01/27/2025 1:22 PM CDT 01/27/2025 1:47 PM CDT Anthony Jensen MD LAB BLOOD ORDERABLE S Final Result Performing Organization Address [facility] de Phone Number [id number] [address] * (ABNORMAL) Comprehensive metabolic panel (01/27/2025 1:22 PM CDT) [facility] Sodium 135 135 - 145 mmol/L Comment:Testing performed by : [address] [address] Potassium, pl 3.5 3.3 - 4.9 mmol/L [facility] Comment:Testing performed by : [address] [address] Chloride 100 97 - 110 mmol/L [facility] Comment:Testing performed by : [address] [address] CO2 24 22 - 32 mmol/L [facility] Comment:Testing performed by : [address] [address] Anion gap 11 2 - 15 mmol/L [facility] Comment:Testing performed by : [address] [address] BUN 8 6 - 25 mg/dL [facility] Comment:Testing performed by : [address] [address] Creatinine 0.57(L) 0.60 - 1.10 mg/dL [facility] Comment:Testing performed by : [address] [address] Glucose 85 70 - 199 mg/dL DARWIN [...] was last revised 2022. Testing performed by: [address] [address] Calcium 10.0 8.5 - 10.3 mg/dL [facility] Comment:Testing performed by : [address] [address] Bilirubin, total 0.6 0.1 - 1.2 mg/dL [facility] Comment:Testing performed by : [address] [address] Protein, pl 7.8 6.5 - 8.5 g/dL [facility] Comment:Testing performed by : [address] [address] Albumin 4.6 3.5 - 5.0 g/dL [facility] Comment:Testing performed by : [address] [address] Alk phos 42 40 - 130 Units/L [facility] Comment:Testing performed by : [address] [address] ALT 11 7 - 45 Units/L [facility] Comment:Testing performed by : [address] [address] AST 18 10 - 45 Units/L [facility] Comment:Testing performed by : [address] [address] Blood 01/27/2025 1:22 PM CDT 01/27/2025 1:47 PM CDT us Anthony Jensen MD LAB BLOOD ORDERABLE S Final Result Performing Organization Address [facility] Co de Phone Number DARWIN [address] [place] [address] * eGFR (01/17/2025 8:24 AM CDT) eGFR [...] was last reviewed 2021. Testing performed by: [facility], [address] [place] [address]., [address] Blood 01/17/2025 8:24 AM CDT 01/17/2025 8:34 AM CDT us Sterling Henry MD LAB BLOOD ORDERABLES Final Resul t [facility] [address] [place] [address] * Differential, auto (01/17/2025 8:24 AM CDT) Neutrophil abs 3.41 1.50 - 6.50 K/cumm Comment:Testing performed by : [facility], [address] [place] [address], [place]., [address] Imm gran abs 0.01 0.00 - 0.10 K/cumm [facility] Comment:Testing performed by : [address], [place]., [address] Lymphocyte abs 1.65 0.80 - 3.30 K/cumm [facility] Comment:Testing performed by : [address], [place]., [address] Monocyte abs 0.65 0.20 - 0.80 K/cumm [facility] Comment:Testing performed by : [address], [place]., [address] Eosinophil abs 0.04 0.00 - 0.50 K/cumm [facility] Comment:Testing performed by : [address], [place]., [address] Basophil abs 0.09 0.00 - 0.10 K/cumm [facility] Comment:Testing performed by : [address] [address] Neutrophil pct 58.3 % [facility] Comment: Interpretive Data Percent cell count reference ranges are not reported, since discordance with absolute values may lead to misinterpretation of CBC data. Current Interpretive Data was last revised on 2018. Testing performed by: [address] [address] Imm gran pct 0.2 % [facility] Comment: Interpretive Data Percent cell count reference ranges are not reported, since discordance with absolute values may lead to misinterpretation of CBC data. Current Interpretive Data was last revised on 2018. Testing performed by: [address] [address] Lymphocyte pct 28.2 % [facility] Comment: Interpretive Data Percent cell count reference ranges are not reported, since discordance with absolute values may lead to misinterpretation of CBC data. Current Interpretive Data was last revised on 2018. Testing performed by: [address] [address] Monocyte pct 11.1 % [facility] Comment: Interpretive Data Percent cell count reference ranges are not reported, since discordance with absolute values may lead to misinterpretation of CBC data. Current Interpretive Data was last revised on 2018. Testing performed by: [address] [address] Eosinophil pct 0.7 % [facility] Comment: Interpretive Data Percent cell count reference ranges are not reported, since discordance with absolute values may lead to misinterpretation of CBC data. Current Interpretive Data was last revised on 2018. Testing performed by: [address] [address] Basophil pct 1.5 % [facility] Comment: Interpretive Data Percent cell count reference ranges are not reported, since discordance with absolute values may lead to misinterpretation of CBC data. Current Interpretive Data was last revised on 2018. Testing performed by: [address] [address] Blood 01/17/2025 8:24 AM CDT 01/17/2025 8:34 AM CDT us Sterling Henry MD LAB BLOOD ORDERABLES Final Resul t [facility] [address] [facility] Department [place] [address] * (ABNORMAL) Urinalysis reflex to microscopic and culture Urine (01/17/2025 8:24 AM CDT) Color, ur Yellow Yellow Comment:Testing performed by : [address] [address] Clarity, ur Cloudy(A) Clear [facility]WIN Comment:Testing performed by : [address] [address] Specific gravity, ur 1.029 1.003 - 1.030 [facility] Comment:Testing performed by : [address] [address] pH, urine 6.5 [facility] Comment: Interpretive Data U rine pH is affected by diet, medications, systemic acid-base disturbances, and renal tubular function. pH may affect urinary stone formation. For example, urine pH below 6.0 may help reduce the tendency for calcium phosphate stones and pH greater than 6.0 may reduce the tendency for uric acid stone formation. Source: [facility] Current Interpretive Data was last revised on 2017 Testing performed by: [facility], [address] [place] [address]., [address] Protein, ur ql 1+(A) Negative [facility] [place] Comment:Testing performed by : [address] [address] Glucose, ur ql Negative Negative [facility]WIN Comment:Testing performed by : [address], [place]., [address] Ketones, ur 3+(A) Negative [facility]WIN [place] Comment:Testing performed by : [address] [address] Bilirubin, ur Negative Negative [facility]WIN Comment:Testing performed by : [address] [address] Blood, ur Negative Negative [facility]WIN Comment:Testing performed by : [address] [address] Urobilinogen, ur 2.0(A) <2.0 mg/dL [facility]WIN Comment:Testing performed by : [address] [address] Nitrite, ur Negative Negative [facility]WIN Comment:Testing performed by : [address] [address] Leukocyte esterase, ur Negative Negative [facility]WIN Comment:Testing performed by : [address] [address] UA reflex comment Reflex to microscopic UA will be performed. [facility]WIN Comment:Testing performed by : [address] [address] Urine 01/17/2025 8:24 AM CDT 01/17/2025 8:34 AM CDT us Sterling Henry MD LAB MICROBIOLOGY - GENERAL ORDER HIRAL Final Result DARWIN [facility] [address] [facility] Department [place] [address] * (ABNORMAL) CBC with auto differential (01/17/2025 8:24 AM CDT) [facility] Signature WBC 5.85 3.80 - 9.90 K/cumm Comment:Testing performed by : [address], [address] Hgb 12.4 11.9 - 15.5 g/dL [facility]WIN Comment:Testing performed by : [address] [address] Hct 36.4 35.6 - 45.5 % [facility] Comment:Testing performed by : [address], [address] Plt 348 150 - 400 K/cumm [facility]WIN Comment:Testing performed by : [address], [address] MPV 9.8 9.1 - 12.3 fL [facility] Comment:Testing performed by : [address], [address] RBC 3.97 3.90 - 5.20 M/cumm [facility]WIN Comment:Testing performed by : [address], [address] MCV 91.7 81.3 - 96.4 fL [facility] Comment:Testing performed by : [address] [address] MCH 31.2 27.1 - 33.3 pg [facility]WIN Comment:Testing performed by : [address], [address] MCHC 34.1 32.3 - 35.7 g/dL [facility] Comment:Testing performed by : [address], [address] RDW CV 14.6 11.1 - 14.9 % [facility]WIN Comment:Testing performed by : [address], [address] RDW SD 49.4(H) 35.7 - 48.1 fL [facility] Comment:Testing performed by : [address], [address] NRBC abs 0.00 0.00 - 0.01 K/cumm [facility]WIN Comment:Testing performed by : [address] [address] Blood Venous blood specimen / Unknown 01/17/2025 8:24 AM CDT 01/17/2025 8:34 AM CDT Sterling Henry MD LAB BLOOD ORDERABLES Final Resul t Performing Organization Address City/[facility] Co de Phone Number [facility] [address] [place] [address] * (ABNORMAL) Urinalysis, microscopic only (01/17/2025 8:24 AM CDT) WBC, ur 0-5 0 - 5 /HPF Comment:Testing performed by : [address] [address] RBC, ur 3-5(A) 0 - 2 /HPF [facility]WIN Comment:Testing performed by : [address] [address] Epithelial cells, squamous, ur >50(A) 0 - 5 /HPF [facility]WIN Comment:Testing performed by : [address] [address] Mucous, ur Present(A) [facility]WIN Comment:Testing performed by : [address] [address] Culture Reflex Comment Reflex conditions for urine culture (WBC >10) not met. [facility]WIN Comment:Testing performed by : [address] [address] Urine 01/17/2025 8:24 AM CDT 01/17/2025 8:34 AM CDT Sterling Henry MD LAB URINE ORDERABLES Final Resul t Performing Organization Address City/[facility] Co de Phone Number DARWIN [address] [place] [address] * (ABNORMAL) hCG, blood, quantitative (01/17/2025 8:24 AM CDT) [facility] hCG, quant 59,449.0( H) 0.0 - 5.0 IUnits/L Comment: Interpretive Data Male: < 5 IU/L Non- premenopausal Female: <5 IU/L The [employer] hCG Beta Quant assay procedure was used. Results from different manufacturers or methods may not be comparable. Serial testing should be performed using the same method. Interpretive Data was last revised on 2023 Testing performed by: [address] [address] Blood 01/17/2025 8:24 AM CDT 01/17/2025 8:34 AM CDT Sterling Henry MD LAB BLOOD ORDERABLES Final Resul t Performing Organization Address City/[facility]/ZIP Co de Phone Number [phone] [place] [address] * Lipase (01/17/2025 8:24 AM CDT) [facility] Lipase 15 10 - 99 Units/L Comment:Testing performed by : [address] [address] Blood Venous blood specimen / Unknown 01/17/2025 8:24 AM CDT 01/17/2025 8:34 AM CDT Sterling Henry MD LAB BLOOD ORDERABLES Final Resul t [address] [place] [place] [address] * (ABNORMAL) Comprehensive metabolic panel (01/17/2025 8:24 AM CDT) [facility] Sodium 136 135 - 145 mmol/L Comment:Testing performed by : [address] [address] Potassium, pl 3.5 3.3 - 4.9 mmol/L [facility] Comment:Testing performed by : [address] [address] Chloride 100 97 - 110 mmol/L [facility] Comment:Testing performed by : [facility], [address] [place] [address]., [address] CO2 24 22 - 32 mmol/L [facility] Comment:Testing performed by : [address] [address] Anion gap 12 2 - 15 mmol/L [facility] Comment:Testing performed by : [address] [address] BUN 10 6 - 25 mg/dL [facility] Comment:Testing performed by : [address], [place]., [address] Creatinine 0.62 0.60 - 1.10 mg/dL [facility] Comment:Testing performed by : [address] [address] Glucose 83 70 - 199 mg/dL [facility] [...] was last revised 2022. Testing performed by: [address] [address] Calcium 10.3 8.5 - 10.3 mg/dL [facility] Comment:Testing performed by : [address] [address] Bilirubin, total 1.3(H) 0.1 - 1.2 mg/dL [facility] Comment:Testing performed by : [address] [address] Protein, pl 7.8 6.5 - 8.5 g/dL [facility] Comment:Testing performed by : [address] [address] Albumin 4.7 3.5 - 5.0 g/dL [facility] Comment:Testing performed by : [facility] [address] [place] [address]., [address] Alk phos 46 40 - 130 Units/L [place] Comment:Testing performed by : [address] [address] ALT 12 7 - 45 Units/L [facility] Comment:Testing performed by : [address] [address] AST 19 10 - 45 Units/L [facility] Comment:Testing performed by : [address] [address] Blood 01/17/2025 8:24 AM CDT 01/17/2025 8:34 AM CDT us Sterling Henry MD LAB BLOOD ORDERABLES Final Resul t [facility] [address] [facility] Department [place] [address] * Hepatitis panel, acute Blood (07/05/2023 3:37 PM CDT) Hep A IgM Nonreactive Nonreactive Comment: Interpretive Data: If Hep A IgM Ab is reported as Equivocal, a new sample should be drawn in two weeks for testing. Current interpretive data was last revised on 19. Hep B core IgM Nonreactive Nonreactive [facility] Comment: Interpretive Data If HepB Core IgM Ab is reported as Equivocal, a new sample should be drawn in two weeks for testing. Current interpretive data was last revised on 19. Hep C Ab Nonreactive Nonreactive [facility] Comment: Interpretive Data Nonreactive: Antibodies to HCV [...] last revised on 2019. HepBsAg Nonreactive Nonreactive [facility] Blood 07/05/2023 3:37 PM CDT 07/05/2023 6:33 PM CDT us Pinky Rossi MD LAB MICROBIOLOGY - GENERAL ORDERABLES Final Result [facility] [address] [facility] Department [place] [address] * Pap with reflex to High Risk HPV (02/09/2022 11:05 AM CDT) Thin prep (Pap test) 02/09/2022 11:05 AM CDT 02/10/2022 11:05 AM CDT Narrative PATHOLOGY [facility] - 02/12/2022 11:00 AM CDT [facility] Department of Pathology [address] [place], [place] [id number] Final Report Note to Patients: This report [...] the details. Patient Name: ELDA MCKINNEY Address: [address] [place] [address] Gender: F : 2000 (Age: 21) Service: Laboratory Location: Hospital #: [id number] Patient Type: [facility] SPECIMEN Taken: 02/09/2022 Received: 02/10/2022 Accessioned:: 02/11/2022 Reported: 02/12/2022 Physician(s): Robyn Laws PA-C [facility] Diagnosis: Source of Specimen: Imaged Thinprep Pap Test w/ Reflex HPV - Garnishment Specialist Cytologic Material Specimen Adequacy: - Satisfactory for evaluation; endocervical/transformation zone component present General Category: - Negative for intraepithelial lesion or malignancy DALIA Momin(ASCP) Report Electronically Reviewed and Signed Out By DALIA Momin(ASCP) 02/12/2022 11:00:56 Specimen(s) Received: A: Imaged Thinprep Pap Test w/ Reflex HPV - Garnishment Specialist Cytologic Material Clinical History: Last Menstrual Period: [...] determined by the Surgical Pathology Department at [facility] as part of an ongoing supplier quality engineering manager program and in compliance with federally mandated [...] determined by the Surgical Pathology Department [facility]. It has not been cleared or approved by the [place]. [place]. Food and Drug Administration. Robyn AN LAB CYTOLOGY ORDERABLES [facility] Result PATHOLOGY [facility] from Last 3 Months or Most Recently Relevant to Health Maintenance Insurance [facility] Care Teams Mental Health Case Manager Relationship Specialty Start Date End Date No, Physician PCP - General 01/17/25
[2025-02-15 14:34] VITALS: BP 105/67; PULSE 94; PULSE 99; O2SAT 100
[2025-02-15] MEDS: PROCHLORPERAZINE EDISYLATE 10 MG/2 ML VIAL IV PUSH (14:57)
[2025-02-15] MEDS: DEXTROSE 5%/LACTATED RINGERS 1,000 ML 999 ML IV CONT (14:57)
[2025-02-15 15:21] LABS: Hematocrit 35.9 % (37.0-47.0); Hemoglobin 12.1 g/dL (12.0-15.0); Mean Corpuscular HGB Conc 33.7 g/dl (32-36); Mean Corpuscular Hemoglobin 30.8 pg (26-34); Mean Corpuscular Volume 91.3 fl (80-100); Mean Platelet Volume 9.7 fl (7.4-10.4); Platelet Count Result 314 k/mm3 (150-375); Red Blood Count 3.93 M/mm3 (4.2-5.4); Red Cell Distribution Width 13.8 % (11.5-14.5); White Blood Count 6.4 K/mm3 (4.5-10.0)
[2025-02-15 15:35] LABS: Alanine Aminotransferase 15 U/L (6-35); Albumin Level 4.6 g/dL (3.5-5.1); Alkaline Phosphatase 37 U/L (38-126); Anion Gap 12 mmol/L (4-12); Aspartate Amino Transferase 27 U/L (14-36); Bilirubin,Total 1.6 mg/dL (0.2-1.3); Blood Urea Nitrogen 12 mg/dL (7-17); Calcium 10.2 mg/dL (8.4-10.2); Carbon Dioxide 23 mmol/L (22-30); Chloride 100 mmol/L (98-107); Estimated Glomerular Filt Rate > 60; Glucose 95 mg/dL (65-110); Potassium 3.5 mmol/L (3.4-5.0); Sodium 135 mmol/L (137-145)
[2025-02-15 15:36] VITALS: BMI 18.1
[2025-02-15 16:21] LABS: Add Urine Microscopic? YES; Appearance Urine Cloudy (Clear); Bacteria Urine 1+ /hpf; Bilirubin Urine Negative (Negative); Blood Urine Negative (Negative); Color Urine Yellow (Yellow); Glucose Urine UA Negative (Negative); Ketones Urine 1+ mg/dL (Negative); Leukocyte Esterase Ur Negative LEU/UL (Negative); Need Manual Microscopic Reviewed; Nitrate Urine Negative (Negative); Non Pathogenic Casts 0-2; Protein Urine 1+ mg/dL (Negative); RBC Urine 0-2 /hpf (0-2); Specific Grav Ur 1.026 (1.001-1.035); Squamous Epithelial Cell Urine Moderate /hpf (Few); WBC Urine 0-5 /hpf (0-3)
--- NOTE | 2025-03-12 07:34 | P.PNOB_ITS ---
OB - Triage/Final Diagnosis Visit Information Comments/Additional reasons for admission: I have assessed the risk for this patient, Zulema Mckinney, and determined that she would benefit from observation care. Evaluation Laboratory results: Laboratory Tests 02/15/25 02/15/25 14:58 15:54 WBC 6.4 RBC 3.93 L Hgb 12.1 Hct 35.9 L MCV 91.3 MCH 30.8 MCHC 33.7 RDW 13.8 Plt Count 314 MPV 9.7 Sodium 135 L Potassium 3.5 Chloride 100 Carbon Dioxide 23 Anion Gap 12 BUN 12 Creatinine 0.56 L Estim Creat Clear Calc Not Reportable Estimated GFR > 60 Glucose 95 Calcium 10.2 Total Bilirubin 1.6 H AST 27 ALT 15 Alkaline Phosphatase 37 L Total Protein 8.0 Albumin 4.6 Urine Color Yellow Urine Appearance Cloudy H Urine pH 7.0 Ur Specific [place] 1.026 Urine Protein 1+ H Urine Glucose (UA) Negative Urine Ketones 1+ H Ur Blood (Man) Negative Urine Nitrate Negative Urine Bilirubin Negative Urine Urobilinogen 1.0 Add Ur Microanalysis Reviewed Leukocyte Esterase Rfl Negative Urine RBC 0-2 Urine WBC 0-5 Ur Squamous Epith Cells Moderate Urine Bacteria 1+ H Urine Casts 0-2 Final Diagnosis (1) Hyperemesis affecting , antepartum: Code(s): O21.0 - Mild hyperemesis gravidarum Status: Acute
== END 2025-02-15 17:27 | disposition home or self-care (01) ==
LOC: ANHOBPP 13:46 → ANHLDR 14:37
PROVIDERS: Admitting Provider Obstetrics & Gynecology; Visit Provider Obstetrics & Gynecology
DX: O21.0 Mild hyperemesis gravidarum (principal); Z3A.10 10 weeks gestation of pregnancy
CPT/HCPCS: 36415; 80053; 81001; 85027; 96374; G0378; G0379; J0780; J7121